=== PATIENT | female | born 1930 ===

== ENCOUNTER 2018-11-17 17:07 | Inpatient (IN) | payer MEDICARE, MEDICAID ==
[2018-11-17 17:08] VITALS: BMI 37.2
[2018-11-17 17:50] LABS: BASO # 0.1 K/uL (0.0-0.2); BASO % 0.9 % (0.0-2.0); EOS # 0.3 K/uL (0.0-0.7); EOS % 2.8 % (0.0-4.0); HEMOGLOBIN 7.5 g/dL (12.0-16.0); LYMPH # 1.8 K/uL (1.0-4.3); LYMPH % 19.9 % (20.0-40.0); MEAN CELL VOLUME 93.8 fl (81.0-99.0); MEAN CORPUSCULAR HEMOGLOBIN 30.8 pg (27.0-31.0); MEAN CORPUSCULAR HGB CONC 32.9 g/dL (33.0-37.0); MEAN PLATELET VOLUME 8.5 fl (7.2-11.7); MONO # 0.9 K/uL (0.0-0.8); MONO % 9.9 % (0.0-10.0); NEUT % 66.5 % (50.0-75.0); RBC 2.43 Mil/uL (3.80-5.20); RED CELL DISTRIBUTION WIDTH 15.5 % (11.5-14.5)
[2018-11-17 17:55] LABS: PROTHROMBIN TIME 11.9 Seconds (9.8-13.1)
[2018-11-17 17:57] LABS: PARTIAL THROMBOPLASTIN TIME 31.3 Seconds (25.6-37.1)
[2018-11-17 18:02] LABS: VENOUS BLOOD GAS BASE EXCESS -2.3 mmol/L (0.0-2.0); VENOUS BLOOD GAS PCO2 38 mmHg (40-60); VENOUS BLOOD GAS PO2 25 mm/Hg (30-55); VENOUS BLOOD PH 7.38 (7.32-7.43)
--- NOTE | 2018-11-17 18:02 | ED PDOC ---
HPI:Nausea, Vomiting, Diarrhea Time Seen by Provider: 11/17/18 17:17 Chief Complaint (Nursing): Abnormal Labs Chief Complaint (Provider): GI bleed History Per: Patient History/Exam Limitations: clinical condition Onset/Duration Of Symptoms: Unknown Associated Symptoms: Diarrhea Additional Complaint(s): 88 year old female with a history of dementia and hypertension was sent by assisted to the ED for blood stools and hemoglobin of 6.8. Patient is unable to provide any further history. She only reports that she feels like she has diarrhea with unknown duration. PMD: Jeaneth Past Medical History Reviewed: Historical Data, Nursing Documentation, Vital Signs Vital Signs: Last Vital Signs Temp 99.0 F 11/17/18 17:10 Pulse 82 11/17/18 17:10 Resp 18 11/17/18 17:10 BP 141/57 L 11/17/18 17:10 Pulse Ox 98 11/17/18 17:10 Primary Care Provider: Florencio Eric - Medical History PMH: Anemia, Arthritis, Asthma, Dementia, HTN Denies: Chronic Kidney Disease - Surgical History Surgical History: Cholecystectomy - Family History Family History: States: Unknown Family Hx - Social History Current smoker - smoking cessation education provided: No Ex-Smoker (has not smoked in the last 12 months): No - Home Medications Home Medications: Ambulatory Orders Medication Instructions Recorded Acetaminophen [Tylenol Extra 1,000 mg PO Q8 PRN 11/17/18 Strength] Bimatoprost [Lumigan] 1 drop BOTHEYES HS 11/17/18 Donepezil HCl [Aricept] 10 mg PO HS 11/17/18 Lactulose [Constulose] 15 ml PO Q8 PRN 11/17/18 Levothyroxine Sodium [Levoxyl] 50 mcg PO DAILY 11/17/18 Lidocaine 2% Gel [Xylocaine 2% 1 dose TD DAILY 11/17/18 (Uro-Jet)] Megestrol Acetate 10 ml PO DAILY 11/17/18 Memantine HCl [Namenda Xr] 28 mg PO HS 11/17/18 Metoprolol Tartrate [Lopressor] 25 mg PO BID 11/17/18 Nitroglycerin [Nitroglycerin Patch] 1 patch TD DAILY 11/17/18 Oxycodone HCl/Acetaminophen 1 tab PO Q12 PRN 11/17/18 [Oxycodone-Acetaminophen 5-325] Propylene Glycol [Systane Complete] 1 drop BOTHEYES BID 11/17/18 - Allergies Allergies/Adverse Reactions: Allergies Allergy/AdvReac Type Severity Reaction Status Date / Time No Known Allergies Allergy Verified 12/03/14 08:11 Review of Systems Review Of Systems: ROS cannot be obtained secondary to pt's inabilty to answer questions. Physical Exam - Reviewed Nursing Documentation Reviewed: Yes Vital Signs Reviewed: Yes - Physical Exam Appears: Positive for: No Acute Distress (pleasantly confused) Head Exam: Positive for: ATRAUMATIC, NORMOCEPHALIC Skin: Positive for: Pallor Eye Exam: Positive for: EOMI, PERRL ENT: Positive for: Other (tacky mucous membranes) Neck: Positive for: Painless ROM. Negative for: Trachea Midline Cardiovascular/Chest: Positive for: Regular Rate, Rhythm. Negative for: Murmur Respiratory: Positive for: Normal Breath Sounds. Negative for: Respiratory Distress Gastrointestinal/Abdominal: Positive for: Soft. Negative for: Tenderness Back: Positive for: Normal Inspection. Negative for: Muscle Spasm Rectal: Positive for: Other (gross blood at the rectum ) Extremity: Positive for: Normal ROM. Negative for: Deformity Lymphatic: Negative for: Adenopathy Neurological/Psych: Positive for: Awake, Alert. Negative for: Oriented, Motor/Sensory Deficits - Laboratory Results Result Diagrams: 11/17/18 17:46 11/17/18 17:46 Lab Results: PT 11.9 Seconds (9.8-13.1) 11/17/18 17:46 INR 1.0 11/17/18 17:46 APTT 31.3 Seconds (25.6-37.1) 11/17/18 17:46 - ECG ECG: Positive for: Interpreted By Me ECG Rhythm: Positive for: Normal QRS, Sinus Rhythm, Nonspecific Changes O2 Sat by Pulse Oximetry: 98 (RA) Pulse Ox Interpretation: Normal - Critical Care Total Time (In Min): 30 Documented Critical Care: Time excludes all time spent performint seperately billable procedures Medical Decision Making Medical Decision Making: Time: 1726 Impression: Anemia and GI bleed Patient will need hospitalization, pending ED workup Plan: --Crossmatch --Type and screen --VBG --EKG --BNP --CMP --magnesium --phosphorus --troponin --CBC --PTT --PT/INR --CXR --Protonix 80 mg IVP Hgb 7.5. Transfusion to be given. reviewed risks/benefits and pt signed consent. GAL Eric who requests Dr Mckenna for consult GAL Villeda for ICU placement for GI bleed. GAL Mckenna. At this time patient unable to undergo CT imaging with contrast due to renal status. Scribe Attestation: Documented by Asuncion Gibson, acting as a scribe for Estefany Gifford MD. Provider Scribe Attestation: All medical record entries made by the Scribe were at my direction and personally dictated by me. I have reviewed the chart and agree that the record accurately reflects my personal performance of the history, physical exam, medical decision making, and the department course for this patient. I have also personally directed, reviewed, and agree with the discharge instructions and disposition. Disposition - Clinical Impression Clinical Impression: Anemia, GI bleed - Disposition Disposition Time: 18:35 Condition: CRITICAL - Pt Status Changed To: Hospital Disposition Of: Inpatient - Admit Certification Admit to Inpatient:: After my assessment, the patient will require hospitalization for at least two midnights. This is because of the severity of symptoms shown, intensity of services needed, and/or the medical risk in this patient being treated as an outpatient. - POA Present On Arrival: None
[2018-11-17 18:04] LABS: ALBUMIN 3.1 g/dL (3.5-5.0); ALT/SGPT 24 U/L (9-52); AST/SGOT 18 U/L (14-36); BLOOD UREA NITROGEN 45 mg/dl (7-17); CALCIUM 8.3 mg/dL (8.4-10.2); GFR NON-AFRICAN AMERICAN 25
[2018-11-17 18:15] LABS: B-TYPE NATRIURETIC PEPTIDE 5620 pg/ml (0-900)
--- NOTE | 2018-11-17 18:19 | RAD ---
Date of service: 11/17/2018 HISTORY: Anemia, GI bleed. COMPARISON: 04/07/2013 FINDINGS: LUNGS: No active pulmonary disease. PLEURA: No significant pleural effusion identified, no pneumothorax apparent. CARDIOVASCULAR: Atherosclerotic calcifications identified primarily aortic arch. Small right pleural effusion. OSSEOUS STRUCTURES: No significant abnormalities. VISUALIZED UPPER ABDOMEN: Normal. OTHER FINDINGS: None. IMPRESSION: No active pulmonary disease.
[2018-11-17] MEDS ORDERED: Metoprolol 1 mg/ml Inj IVP STA (20:55)
[2018-11-17] MEDS ORDERED: Metoprolol 1 mg/ml Inj ONE (21:07)
--- NOTE | 2018-11-17 21:41 | CP.CCUPN ---
CCU Subjective - Physician Review Subjective (Free Text): Available ER notes, labs, and CXR reviewed: 88F transferred from [place] for [facility], no assoc hypotension, N/V, tachycardia, or lethargy. In [place], exhibited rectal bleeding with lower abdominal discomfort, Hgb testing at the [place] was 6.8, initial labs in the ER showed Hgb = 7.5. Appears confused, oriented to person and place only, does not appear distressed, no family available for further questioning. VS reviewed; Afebrile, HR 82, BP 141/87, RR 18, 98% on RA PMH: dementia, HTN, Anemia and asthma. ROS: No other pertinent negs or positive on 10+ system review obtainable. Allergies: NKDA [place] Meds: Lumigan / Systane, Aricept, Lactulose, Levothyroxine, Megace, Namenda, Lopressor, NTG patch, Oxycodone. Other PMSFH: All other Nursing and physician documentation reviewed to date; no new pertinent info noted relevant to current medical problems. EXAM- HEENT: no icterus, pupils equal, 3 mm and reactive, no gaze preference, no nystagmus NECK: no visible JVD, supple, carotids equal upstroke bilat/no bruits CHEST: decreased BS L base, no wheezes audible HEART: regular, distant, S1S2, no murmur audible, no rubs. ABD: soft, minimal distention, notenderness; BS hypoactive EXT: no calf tenderness, no palpable cords, distal pulses intact and symmetrical, SCDs on bilat, no cyanosis, no clubbing. NEURO: No focal motor deficits SKIN: no rashes LABS: WBC= 9.0 HGB= 7.5 PLTs = 232K Coags: INR =1.0, PTT normal. 7.38/38/25 with VBG 55.4% sat'n Lactate= 2.0 Na= 137 K= 4.6 Cl= 107 HCO3= 20 BUN/Cr= 45/1.9 BS= 137 Trop negative x1. CXR: (my interp) small R effusion, rotated film, no obvious consolidation. EKG: Sinus 71/min, normal axis, mild NS ST-T changes V5-V6. IMPRESSION / MAJOR PROBLEMS NOW: 1. Acute on Chronic Disease Anemia 2' LGI Bleed 2. r/o Diverticular disease, AVM, occult Bowel CA 3. Azotemia / Dehydration PLAN: 1. PRBCs ordered in ER, and started on PPi bolus and drip, GI consultation. 2. IVF hydration 3. Continue beta blockers, Nitroglycerin, obtain serial trops, repeat EKG in AM. 4. Consider CT Abdomen pelvis Angio study; and Surgery eval if rectal bleeding does not subside. 5. See orders.
[2018-11-17] MEDS ORDERED: Metoprolol 1 mg/ml Inj IVP PRN (22:08)
[2018-11-17] MEDS ORDERED: Nitroglycerin 2% Ointment Foilpak UD TOP ONE (23:41)
[2018-11-17] MEDS: Nitroglycerin 2% Ointment Foilpak UD TOP SCH (23:50)
[2018-11-18] MEDS ORDERED: Metoprolol 1 mg/ml Inj ONE
[2018-11-18 06:50] LABS: BASO % 0.5 % (0.0-2.0); EOS # 0.2 K/uL (0.0-0.7); EOS % 2.4 % (0.0-4.0); HEMOGLOBIN 9.5 g/dL (12.0-16.0); LYMPH # 1.9 K/uL (1.0-4.3); LYMPH % 20.8 % (20.0-40.0); MEAN CELL VOLUME 90.7 fl (81.0-99.0); MEAN CORPUSCULAR HEMOGLOBIN 30.6 pg (27.0-31.0); MEAN CORPUSCULAR HGB CONC 33.8 g/dL (33.0-37.0); MEAN PLATELET VOLUME 8.7 fl (7.2-11.7); MONO # 1.1 K/uL (0.0-0.8); NEUT # 5.8 K/uL (1.8-7.0); NEUT % 64.3 % (50.0-75.0); NRBC % 0.1 % (0.0-0.0); RBC 3.11 Mil/uL (3.80-5.20); RED CELL DISTRIBUTION WIDTH 14.8 % (11.5-14.5)
[2018-11-18 07:25] LABS: ALBUMIN 2.8 g/dL (3.5-5.0); ALT/SGPT 25 U/L (9-52); AST/SGOT 27 U/L (14-36); BLOOD UREA NITROGEN 40 mg/dl (7-17); CALCIUM 8.2 mg/dL (8.4-10.2); GFR NON-AFRICAN AMERICAN 28
[2018-11-18] MEDS: Nitroglycerin 2% Ointment Foilpak UD TOP SCH ×4 (08:22→21:25)
--- NOTE | 2018-11-18 08:50 | CP.CCUPN ---
CCU Subjective - Physician Review Events Since Last Encounter (Free Text): Patient awake, no distress, no fever, no vomiting, no pressors, events reviewed CCU Objective - Vital Signs / Intake & Output Vital Signs (Last 4 hours): Vital Signs Pulse Resp BP Pulse Ox 11/18/18 08:22 175/71 H 11/18/18 06:00 59 L 14 172/87 H 96 Intake and Output (Last 8hrs): Intake & Output 11/17/18 11/18/18 11/18/18 22:59 06:59 14:59 Intake Total 0 926 Output Total 250 Balance 0 676 Weight 120 lb 3.2 oz 122 lb Intake: IV 35 Blood Product 0 891 Apheresis Rbc Cp2d As3 Lr 283 1st Unit [id number] Red Blood Cells Cpd As1 0 325 Lr Unit [id number] Output: Urine 250 Urine, Voided 250 Other: # Bowel Movements 1 - Physical Exam Head: Positive for: Atraumatic, Normocephalic Pupils: Positive for: PERRL Conjunctiva: Positive for: Normal Mouth: Positive for: Dry Pharnyx: Positive for: Normal Nose (External): Positive for: Atraumatic Neck: Positive for: Normal Range of Motion Respiratory/Chest: Positive for: Clear to Auscultation Cardiovascular: Positive for: Regular Rate and Rhythm Abdomen: Positive for: Normal Bowel Sounds Upper Extremity: Positive for: Normal Inspection Lower Extremity: Positive for: Normal Inspection Psychiatric: Positive for: Alert - Medications Active Medications: Active Medications Generic Name Dose Route Start Last Admin Trade Name Freq PRN Reason Stop Dose Admin Metoprolol Tartrate 2.5 mg 11/17/18 22:08 11/18/18 00:00 Lopressor IVP 2.5 mg Q4 PRN Administration Systolic Blood Pressure Nitroglycerin 2 ea 11/17/18 22:30 11/18/18 08:22 Nitro-Bid 2% Oint TOP 2 ea QID GRAHAM Administration Pantoprazole Sodium 40 mg 11/18/18 09:00 11/18/18 08:23 Protonix Inj IVP 40 mg Q12 GRAHAM Administration - Patient Studies Lab Studies: Lab Studies 11/18/18 11/18/18 11/18/18 Range/Units 04:35 04:35 04:35 WBC (4.8-10.8) K/uL RBC (3.80-5.20) Mil/uL Hgb (12.0-16.0) g/dL Hct (34.0-47.0) % MCV (81.0-99.0) fl MCH (27.0-31.0) pg MCHC (33.0-37.0) g/dL RDW (11.5-14.5) % Plt Count (130-400) K/uL MPV (7.2-11.7) fl Neut % (Auto) (50.0-75.0) % Lymph % (Auto) (20.0-40.0) % [place] % (Auto) (0.0-10.0) % Eos % (Auto) (0.0-4.0) % Baso % (Auto) (0.0-2.0) % Neut # (Auto) (1.8-7.0) K/uL Lymph # (Auto) (1.0-4.3) K/uL [place] # (Auto) (0.0-0.8) K/uL Eos # (Auto) (0.0-0.7) K/uL Baso # (Auto) (0.0-0.2) K/uL PT (9.8-13.1) Seconds INR APTT (25.6-37.1) Seconds pO2 (30-55) mm/Hg VBG pH (7.32-7.43) VBG pCO2 (40-60) mmHg VBG HCO3 mmol/L VBG Total CO2 (22-28) mmol/L VBG O2 Sat (Calc) (40-65) % VBG Base Excess (0.0-2.0) mmol/L VBG Potassium (3.6-5.2) mmol/L Glucose (65-105) mg/dL Lactate (0.7-2.1) mmol/L FiO2 % Crit Value Called To Crit Value Called By Crit Value Read Back Blood Gas Notified Time Sodium 138 (132-148) mmol/l Potassium 4.7 (3.6-5.0) MMOL/L Chloride 109 H (98-107) mmol/L Carbon Dioxide 22 (22-30) mmol/L Anion Gap 12 (10-20) BUN 40 H (7-17) mg/dl Creatinine 1.7 H (0.7-1.2) mg/dl Est GFR ( Amer) 34 Est GFR (Non-Af Amer) 28 Random Glucose 73 (65-105) mg/dL Lactic Acid 0.8 (0.7-2.1) mmol/L Calcium 8.2 L (8.4-10.2) mg/dL Phosphorus 4.2 (2.5-4.5) mg/dl Magnesium 2.3 (1.6-2.3) MG/DL Total Bilirubin 1.0 (0.2-1.3) mg/dl AST 27 (14-36) U/L ALT 25 (9-52) U/L Alkaline Phosphatase 53 (38-126) U/L Troponin I < 0.0120 (0.00-0.120) ng/mL NT-Pro-B Natriuret Pep (0-900) pg/ml Total Protein 5.7 L (6.3-8.2) G/DL Albumin 2.8 L (3.5-5.0) g/dL Globulin 2.9 (2.2-3.9) gm/dL Albumin/Globulin Ratio 1.0 (1.0-2.1) Free T4 1.58 (0.78-2.19) ng/dL TSH 3rd Generation 2.68 (0.46-4.68) mIU/ML Venous Blood Potassium (3.6-5.2) mmol/L Blood Type Antibody Screen Crossmatch BBK History Checked 11/18/18 11/17/18 11/17/18 Range/Units 04:35 23:38 17:51 WBC 9.0 (4.8-10.8) K/uL RBC 3.11 L (3.80-5.20) Mil/uL Hgb 9.5 L D (12.0-16.0) g/dL Hct 28.2 L (34.0-47.0) % MCV 90.7 D (81.0-99.0) fl MCH 30.6 (27.0-31.0) pg MCHC 33.8 (33.0-37.0) g/dL RDW 14.8 H (11.5-14.5) % Plt Count 204 (130-400) K/uL MPV 8.7 (7.2-11.7) fl Neut % (Auto) 64.3 (50.0-75.0) % Lymph % (Auto) 20.8 (20.0-40.0) % [place] % (Auto) 12.0 H (0.0-10.0) % Eos % (Auto) 2.4 (0.0-4.0) % Baso % (Auto) 0.5 (0.0-2.0) % Neut # (Auto) 5.8 (1.8-7.0) K/uL Lymph # (Auto) 1.9 (1.0-4.3) K/uL [place] # (Auto) 1.1 H (0.0-0.8) K/uL Eos # (Auto) 0.2 (0.0-0.7) K/uL Baso # (Auto) 0.0 (0.0-0.2) K/uL PT (9.8-13.1) Seconds INR APTT (25.6-37.1) Seconds pO2 25 L (30-55) mm/Hg VBG pH 7.38 (7.32-7.43) VBG pCO2 38 L (40-60) mmHg VBG HCO3 21.7 mmol/L VBG Total CO2 23.7 (22-28) mmol/L VBG O2 Sat (Calc) 55.4 (40-65) % VBG Base Excess -2.3 L (0.0-2.0) mmol/L VBG Potassium 4.8 (3.6-5.2) mmol/L Glucose 139 H (65-105) mg/dL Lactate 2.0 (0.7-2.1) mmol/L FiO2 21.0 % Crit Value Called To adam Gifford md Crit Value Called By Ricardo ruvalcaba Crit Value Read Back Y Blood Gas Notified Time 180 Sodium 138.0 (132-148) mmol/l Potassium (3.6-5.0) MMOL/L Chloride 109.0 H (98-107) mmol/L Carbon Dioxide (22-30) mmol/L Anion Gap (10-20) BUN (7-17) mg/dl Creatinine (0.7-1.2) mg/dl Est GFR ( Amer) Est GFR (Non-Af Amer) Random Glucose (65-105) mg/dL Lactic Acid (0.7-2.1) mmol/L Calcium (8.4-10.2) mg/dL Phosphorus (2.5-4.5) mg/dl Magnesium (1.6-2.3) MG/DL Total Bilirubin (0.2-1.3) mg/dl AST (14-36) U/L ALT (9-52) U/L Alkaline Phosphatase (38-126) U/L Troponin I < 0.0120 (0.00-0.120) ng/mL NT-Pro-B Natriuret Pep (0-900) pg/ml Total Protein (6.3-8.2) G/DL Albumin (3.5-5.0) g/dL Globulin (2.2-3.9) gm/dL Albumin/Globulin Ratio (1.0-2.1) Free T4 (0.78-2.19) ng/dL TSH 3rd Generation (0.46-4.68) mIU/ML Venous Blood Potassium 4.8 (3.6-5.2) mmol/L Blood Type Antibody Screen Crossmatch BBK History Checked 11/17/18 11/17/18 11/17/18 Range/Units 17:46 17:46 17:46 WBC 9.0 (4.8-10.8) K/uL RBC 2.43 L (3.80-5.20) Mil/uL Hgb 7.5 L (12.0-16.0) g/dL Hct 22.8 L (34.0-47.0) % MCV 93.8 (81.0-99.0) fl MCH 30.8 (27.0-31.0) pg MCHC 32.9 L (33.0-37.0) g/dL RDW 15.5 H (11.5-14.5) % Plt Count 232 (130-400) K/uL MPV 8.5 (7.2-11.7) fl Neut % (Auto) 66.5 (50.0-75.0) % Lymph % (Auto) 19.9 L (20.0-40.0) % [place] % (Auto) 9.9 (0.0-10.0) % Eos % (Auto) 2.8 (0.0-4.0) % Baso % (Auto) 0.9 (0.0-2.0) % Neut # (Auto) 6.0 (1.8-7.0) K/uL Lymph # (Auto) 1.8 (1.0-4.3) K/uL [place] # (Auto) 0.9 H (0.0-0.8) K/uL Eos # (Auto) 0.3 (0.0-0.7) K/uL Baso # (Auto) 0.1 (0.0-0.2) K/uL PT 11.9 (9.8-13.1) Seconds INR 1.0 APTT 31.3 (25.6-37.1) Seconds pO2 (30-55) mm/Hg VBG pH (7.32-7.43) VBG pCO2 (40-60) mmHg VBG HCO3 mmol/L VBG Total CO2 (22-28) mmol/L VBG O2 Sat (Calc) (40-65) % VBG Base Excess (0.0-2.0) mmol/L VBG Potassium (3.6-5.2) mmol/L Glucose (65-105) mg/dL Lactate (0.7-2.1) mmol/L FiO2 % Crit Value Called To Crit Value Called By Crit Value Read Back Blood Gas Notified Time Sodium (132-148) mmol/l Potassium (3.6-5.0) MMOL/L Chloride (98-107) mmol/L Carbon Dioxide (22-30) mmol/L Anion Gap (10-20) BUN (7-17) mg/dl Creatinine (0.7-1.2) mg/dl Est GFR ( Amer) Est GFR (Non-Af Amer) Random Glucose (65-105) mg/dL Lactic Acid (0.7-2.1) mmol/L Calcium (8.4-10.2) mg/dL Phosphorus (2.5-4.5) mg/dl Magnesium (1.6-2.3) MG/DL Total Bilirubin (0.2-1.3) mg/dl AST (14-36) U/L ALT (9-52) U/L Alkaline Phosphatase (38-126) U/L Troponin I (0.00-0.120) ng/mL NT-Pro-B Natriuret Pep (0-900) pg/ml Total Protein (6.3-8.2) G/DL Albumin (3.5-5.0) g/dL Globulin (2.2-3.9) gm/dL Albumin/Globulin Ratio (1.0-2.1) Free T4 (0.78-2.19) ng/dL TSH 3rd Generation (0.46-4.68) mIU/ML Venous Blood Potassium (3.6-5.2) mmol/L Blood Type O POSITIVE Antibody Screen Negative Crossmatch See Detail BBK History Checked Patient has bt 11/17/18 Range/Units 17:46 WBC (4.8-10.8) K/uL RBC (3.80-5.20) Mil/uL Hgb (12.0-16.0) g/dL Hct (34.0-47.0) % MCV (81.0-99.0) fl MCH (27.0-31.0) pg MCHC (33.0-37.0) g/dL RDW (11.5-14.5) % Plt Count (130-400) K/uL MPV (7.2-11.7) fl Neut % (Auto) (50.0-75.0) % Lymph % (Auto) (20.0-40.0) % [place] % (Auto) (0.0-10.0) % Eos % (Auto) (0.0-4.0) % Baso % (Auto) (0.0-2.0) % Neut # (Auto) (1.8-7.0) K/uL Lymph # (Auto) (1.0-4.3) K/uL [place] # (Auto) (0.0-0.8) K/uL Eos # (Auto) (0.0-0.7) K/uL Baso # (Auto) (0.0-0.2) K/uL PT (9.8-13.1) Seconds INR APTT (25.6-37.1) Seconds pO2 (30-55) mm/Hg VBG pH (7.32-7.43) VBG pCO2 (40-60) mmHg VBG HCO3 mmol/L VBG Total CO2 (22-28) mmol/L VBG O2 Sat (Calc) (40-65) % VBG Base Excess (0.0-2.0) mmol/L VBG Potassium (3.6-5.2) mmol/L Glucose (65-105) mg/dL Lactate (0.7-2.1) mmol/L FiO2 % Crit Value Called To Crit Value Called By Crit Value Read Back Blood Gas Notified Time Sodium 137 (132-148) mmol/l Potassium 4.6 (3.6-5.0) MMOL/L Chloride 107 (98-107) mmol/L Carbon Dioxide 20 L (22-30) mmol/L Anion Gap 15 (10-20) BUN 45 H (7-17) mg/dl Creatinine 1.9 H (0.7-1.2) mg/dl Est GFR ( Amer) 30 Est GFR (Non-Af Amer) 25 Random Glucose 137 H (65-105) mg/dL Lactic Acid (0.7-2.1) mmol/L Calcium 8.3 L (8.4-10.2) mg/dL Phosphorus 4.2 (2.5-4.5) mg/dl Magnesium 2.4 H (1.6-2.3) MG/DL Total Bilirubin 0.4 (0.2-1.3) mg/dl AST 18 (14-36) U/L ALT 24 (9-52) U/L Alkaline Phosphatase 61 (38-126) U/L Troponin I < 0.0120 (0.00-0.120) ng/mL NT-Pro-B Natriuret Pep 5620 H (0-900) pg/ml Total Protein 6.0 L (6.3-8.2) G/DL Albumin 3.1 L (3.5-5.0) g/dL Globulin 3.0 (2.2-3.9) gm/dL Albumin/Globulin Ratio 1.0 (1.0-2.1) Free T4 (0.78-2.19) ng/dL TSH 3rd Generation (0.46-4.68) mIU/ML Venous Blood Potassium (3.6-5.2) mmol/L Blood Type Antibody Screen Crossmatch BBK History Checked Laboratory Results - last 24 hr 11/17/18 11/17/18 11/17/18 17:46 17:46 17:46 WBC 9.0 RBC 2.43 L Hgb 7.5 L Hct 22.8 L MCV 93.8 MCH 30.8 MCHC 32.9 L RDW 15.5 H Plt Count 232 MPV 8.5 Neut % (Auto) 66.5 Lymph % (Auto) 19.9 L [place] % (Auto) 9.9 Eos % (Auto) 2.8 Baso % (Auto) 0.9 Neut # (Auto) 6.0 Lymph # (Auto) 1.8 [place] # (Auto) 0.9 H Eos # (Auto) 0.3 Baso # (Auto) 0.1 PT 11.9 INR 1.0 APTT 31.3 pO2 VBG pH VBG pCO2 VBG HCO3 VBG Total CO2 VBG O2 Sat (Calc) VBG Base Excess VBG Potassium Glucose Lactate FiO2 Crit Value Called To Crit Value Called By Crit Value Read Back Blood Gas Notified Time Sodium 137 Potassium 4.6 Chloride 107 Carbon Dioxide 20 L Anion Gap 15 BUN 45 H Creatinine 1.9 H Est GFR ( Amer) 30 Est GFR (Non-Af Amer) 25 Random Glucose 137 H Lactic Acid Calcium 8.3 L Phosphorus 4.2 Magnesium 2.4 H Total Bilirubin 0.4 AST 18 ALT 24 Alkaline Phosphatase 61 Troponin I < 0.0120 NT-Pro-B Natriuret Pep 5620 H Total Protein 6.0 L Albumin 3.1 L Globulin 3.0 Albumin/Globulin Ratio 1.0 Free T4 TSH 3rd Generation Venous Blood Potassium Blood Type Antibody Screen Crossmatch BBK History Checked 11/17/18 11/17/18 11/17/18 17:46 17:51 23:38 WBC RBC Hgb Hct MCV MCH MCHC RDW Plt Count MPV Neut % (Auto) Lymph % (Auto) [place] % (Auto) Eos % (Auto) Baso % (Auto) Neut # (Auto) Lymph # (Auto) [place] # (Auto) Eos # (Auto) Baso # (Auto) PT INR APTT pO2 25 L VBG pH 7.38 VBG pCO2 38 L VBG HCO3 21.7 VBG Total CO2 23.7 VBG O2 Sat (Calc) 55.4 VBG Base Excess -2.3 L VBG Potassium 4.8 Glucose 139 H Lactate 2.0 FiO2 21.0 Crit Value Called To adam Gifford md Crit Value Called By Ricardo ruvalcaba Crit Value Read Back Y Blood Gas Notified Time 1802 Sodium 138.0 Potassium Chloride 109.0 H Carbon Dioxide Anion Gap BUN Creatinine Est GFR ( Amer) Est GFR (Non-Af Amer) Random Glucose Lactic Acid Calcium Phosphorus Magnesium Total Bilirubin AST ALT Alkaline Phosphatase Troponin I < 0.0120 NT-Pro-B Natriuret Pep Total Protein Albumin Globulin Albumin/Globulin Ratio Free T4 TSH 3rd Generation Venous Blood Potassium 4.8 Blood Type O POSITIVE Antibody Screen Negative Crossmatch See Detail BBK History Checked Patient has bt 11/18/18 11/18/18 11/18/18 04:35 04:35 04:35 WBC 9.0 RBC 3.11 L Hgb 9.5 L D Hct 28.2 L MCV 90.7 D MCH 30.6 MCHC 33.8 RDW 14.8 H Plt Count 204 MPV 8.7 Neut % (Auto) 64.3 Lymph % (Auto) 20.8 [place] % (Auto) 12.0 H Eos % (Auto) 2.4 Baso % (Auto) 0.5 Neut # (Auto) 5.8 Lymph # (Auto) 1.9 [place] # (Auto) 1.1 H Eos # (Auto) 0.2 Baso # (Auto) 0.0 PT INR APTT pO2 VBG pH VBG pCO2 VBG HCO3 VBG Total CO2 VBG O2 Sat (Calc) VBG Base Excess VBG Potassium Glucose Lactate FiO2 Crit Value Called To Crit Value Called By Crit Value Read Back Blood Gas Notified Time Sodium 138 Potassium 4.7 Chloride 109 H Carbon Dioxide 22 Anion Gap 12 BUN 40 H Creatinine 1.7 H Est GFR ( Amer) 34 Est GFR (Non-Af Amer) 28 Random Glucose 73 Lactic Acid Calcium 8.2 L Phosphorus 4.2 Magnesium 2.3 Total Bilirubin 1.0 AST 27 ALT 25 Alkaline Phosphatase 53 Troponin I < 0.0120 NT-Pro-B Natriuret Pep Total Protein 5.7 L Albumin 2.8 L Globulin 2.9 Albumin/Globulin Ratio 1.0 Free T4 1.58 TSH 3rd Generation 2.68 Venous Blood Potassium Blood Type Antibody Screen Crossmatch BBK History Checked 11/18/18 04:35 WBC RBC Hgb Hct MCV MCH MCHC RDW Plt Count MPV Neut % (Auto) Lymph % (Auto) [place] % (Auto) Eos % (Auto) Baso % (Auto) Neut # (Auto) Lymph # (Auto) [place] # (Auto) Eos # (Auto) Baso # (Auto) PT INR APTT pO2 VBG pH VBG pCO2 VBG HCO3 VBG Total CO2 VBG O2 Sat (Calc) VBG Base Excess VBG Potassium Glucose Lactate FiO2 Crit Value Called To Crit Value Called By Crit Value Read Back Blood Gas Notified Time Sodium Potassium Chloride Carbon Dioxide Anion Gap BUN Creatinine Est GFR ( Amer) Est GFR (Non-Af Amer) Random Glucose Lactic Acid 0.8 Calcium Phosphorus Magnesium Total Bilirubin AST ALT Alkaline Phosphatase Troponin I NT-Pro-B Natriuret Pep Total Protein Albumin Globulin Albumin/Globulin Ratio Free T4 TSH 3rd Generation Venous Blood Potassium Blood Type Antibody Screen Crossmatch BBK History Checked Radiology Impressions: Radiology Impressions Chest X-Ray 11/17/18 17:26 IMPRESSION: No active pulmonary disease. EKG/Cardiology Studies: Cardiology / EKG Studies 11/18/18 09:00 EKG [ELECTROCARDIOGRAM] DAILY Comment: Mode Of Transportation: Reason For Exam: r/o AMI Assessment/Plan - Assessment and Plan (Free Text) Assessment: A/P GI bleeding, anemia, dementia, HTN, asthma - Follow up CBC - Transfusion as needed - GI follow up - Continue meds
--- NOTE | 2018-11-18 11:51 | CARD ---
APPROVED REPORT Date of service: 11/17/2018 EKG Measurement Heart [id number] <Conclusion> Normal sinus rhythm with sinus arrhythmia Nonspecific ST abnormality Abnormal ECG
[2018-11-18] MEDS: metroNIDAZOLE 500mg/100ml NS 250 MG in Premixed IV 1 EA IVPB SCH (16:21)
[2018-11-18] MEDS: Dextrose 5%/0.45% NS 1,000 ML IV SCH (16:22)
[2018-11-18] MEDS: Ciprofloxacin 400mg/200ml D5W 400 MG/200 ML BAG IVPB SCH (17:14)
--- NOTE | 2018-11-18 17:17 | CP.PCM.HP ---
History of Present Illness - History of Present Illness History of Present Illness: CC: Abnormal Lab. 88 y/o F, resident at [facility], with PMHx Dementia, HTN, O/A, Asthma, Hypothyroidism, Anemia, falls, chronic back pain. Pt was brought to [facility] on 11/17/18 via EMS, after found with critical level of Hgb on 6.8 while at [place] on [facility], associated to gross rectal bleeding/ diarrhea with no improvement. Worsening symptoms: Abdomen discomfort LLQ, lack of appetite (as per family), Hx Dementia, poor historian Aggravated factor: Walking/exercise. No: Fever, chills, n/v, painful urination, CP, palpitations, dizziness, headache, SOB, cough, sick contact. CXR: No active disease. EKG: Normal sinus rhythm with sinus arrhythmia. Hgb in the ER: 7.5 Present on Admission - Present on Admission Any Indicators Present on Admission: No Review of Systems - Review of Systems Systems not reviewed;Unavailable: Acuity of Condition, Dementia - Constitutional Constitutional: Weight Loss (few, as per family), Weakness Past Patient History - Past Medical History & Family History Past Medical History?: Yes Pertinent Family History: Unknown - Past Social History Smoking Status: Never Smoked Alcohol: None Drugs: Denies - CARDIAC Hx Cardiac Disorders: Yes Hx Hypertension: Yes - PULMONARY Hx Respiratory Disorders: Yes Hx Asthma: Yes Hx Pneumonia: Yes - NEUROLOGICAL Hx Neurological Disorder: Yes Hx Dementia: Yes - HEENT Hx HEENT Problems: Yes Hx Cataracts: Yes - RENAL Hx Chronic Kidney Disease: No - ENDOCRINE/METABOLIC Hx Endocrine Disorders: Yes Hx Hypothyroidism: Yes - HEMATOLOGICAL/ONCOLOGICAL Hx Blood Disorders: Yes Hx Anemia: Yes - INTEGUMENTARY Hx Dermatological Problems: No - MUSCULOSKELETAL/RHEUMATOLOGICAL Hx Musculoskeletal Disorders: Yes Hx Arthritis: Yes Hx Back Pain: Yes Hx Falls: Yes - GASTROINTESTINAL Hx Gastrointestinal Disorders: No - GENITOURINARY/GYNECOLOGICAL Hx Genitourinary Disorders: Yes Other/Comment: FREQUENCY OF URINATION - PSYCHIATRIC Hx Psychophysiologic Disorder: Yes Hx Anxiety: Yes Hx Substance Use: No - SURGICAL HISTORY Hx Surgeries: Yes Hx Cholecystectomy: Yes Hx Open Reduction Internal Fixation: Yes (hip surgery) - ANESTHESIA Hx Anesthesia: Yes Hx Anesthesia Reactions: No Hx Malignant Hyperthermia: No Meds Allergies/Adverse Reactions: Allergies Allergy/AdvReac Type Severity Reaction Status Date / Time No Known Allergies Allergy Verified 12/03/14 08:11 Physical Exam - Constitutional Appears: No Acute Distress, Confused - Head Exam Head Exam: NORMAL INSPECTION - Eye Exam Eye Exam: PERRL - ENT Exam ENT Exam: Normal Exam - Neck Exam Neck exam: Positive for: Normal Inspection - Respiratory Exam Respiratory Exam: Decreased Breath Sounds - Cardiovascular Exam Cardiovascular Exam: REGULAR RHYTHM - GI/Abdominal Exam GI & Abdominal Exam: Normal Bowel Sounds, Soft, Tenderness (LLQ) - Extremities Exam Additional comments: 3+ edema BLE - Back Exam Additional comments: Sacral redness - Neurological Exam Additional comments: Awake, Ox1, forgetful, - Skin Skin Exam: Warm Results - Vital Signs Recent Vital Signs: Last Vital Signs Temp 99 F 11/18/18 16:00 Pulse 82 11/18/18 16:22 Resp 15 11/18/18 16:00 BP 159/58 H 11/18/18 16:00 Pulse Ox 95 11/18/18 12:00 reviewed Niko - Labs Result Diagrams: 11/19/18 04:30 11/19/18 04:30 Labs: Laboratory Results - last 24 hr 11/17/18 11/17/18 11/17/18 17:46 17:46 17:46 WBC 9.0 RBC 2.43 L Hgb 7.5 L Hct 22.8 L MCV 93.8 MCH 30.8 MCHC 32.9 L RDW 15.5 H Plt Count 232 MPV 8.5 Neut % (Auto) 66.5 Lymph % (Auto) 19.9 L [place] % (Auto) 9.9 Eos % (Auto) 2.8 Baso % (Auto) 0.9 Neut # (Auto) 6.0 Lymph # (Auto) 1.8 [place] # (Auto) 0.9 H Eos # (Auto) 0.3 Baso # (Auto) 0.1 PT 11.9 INR 1.0 APTT 31.3 pO2 VBG pH VBG pCO2 VBG HCO3 VBG Total CO2 VBG O2 Sat (Calc) VBG Base Excess VBG Potassium Glucose Lactate FiO2 Crit Value Called To Crit Value Called By Crit Value Read Back Blood Gas Notified Time Sodium 137 Potassium 4.6 Chloride 107 Carbon Dioxide 20 L Anion Gap 15 BUN 45 H Creatinine 1.9 H Est GFR ( Amer) 30 Est GFR (Non-Af Amer) 25 Random Glucose 137 H Lactic Acid Calcium 8.3 L Phosphorus 4.2 Magnesium 2.4 H Total Bilirubin 0.4 AST 18 ALT 24 Alkaline Phosphatase 61 Troponin I < 0.0120 NT-Pro-B Natriuret Pep 5620 H Total Protein 6.0 L Albumin 3.1 L Globulin 3.0 Albumin/Globulin Ratio 1.0 Free T4 TSH 3rd Generation Venous Blood Potassium Blood Type Antibody Screen Crossmatch BBK History Checked 11/17/18 11/17/18 11/17/18 17:46 17:51 23:38 WBC RBC Hgb Hct MCV MCH MCHC RDW Plt Count MPV Neut % (Auto) Lymph % (Auto) [place] % (Auto) Eos % (Auto) Baso % (Auto) Neut # (Auto) Lymph # (Auto) [place] # (Auto) Eos # (Auto) Baso # (Auto) PT INR APTT pO2 25 L VBG pH 7.38 VBG pCO2 38 L VBG HCO3 21.7 VBG Total CO2 23.7 VBG O2 Sat (Calc) 55.4 VBG Base Excess -2.3 L VBG Potassium 4.8 Glucose 139 H Lactate 2.0 FiO2 21.0 Crit Value Called To adam Gifford md Crit Value Called By Ricardo ruvalcaba Crit Value Read Back Y Blood Gas Notified Time 1802 Sodium 138.0 Potassium Chloride 109.0 H Carbon Dioxide Anion Gap BUN Creatinine Est GFR ( Amer) Est GFR (Non-Af Amer) Random Glucose Lactic Acid Calcium Phosphorus Magnesium Total Bilirubin AST ALT Alkaline Phosphatase Troponin I < 0.0120 NT-Pro-B Natriuret Pep Total Protein Albumin Globulin Albumin/Globulin Ratio Free T4 TSH 3rd Generation Venous Blood Potassium 4.8 Blood Type O POSITIVE Antibody Screen Negative Crossmatch See Detail BBK History Checked Patient has bt 11/18/18 11/18/18 11/18/18 04:35 04:35 04:35 WBC 9.0 RBC 3.11 L Hgb 9.5 L D Hct 28.2 L MCV 90.7 D MCH 30.6 MCHC 33.8 RDW 14.8 H Plt Count 204 MPV 8.7 Neut % (Auto) 64.3 Lymph % (Auto) 20.8 [place] % (Auto) 12.0 H Eos % (Auto) 2.4 Baso % (Auto) 0.5 Neut # (Auto) 5.8 Lymph # (Auto) 1.9 [place] # (Auto) 1.1 H Eos # (Auto) 0.2 Baso # (Auto) 0.0 PT INR APTT pO2 VBG pH VBG pCO2 VBG HCO3 VBG Total CO2 VBG O2 Sat (Calc) VBG Base Excess VBG Potassium Glucose Lactate FiO2 Crit Value Called To Crit Value Called By Crit Value Read Back Blood Gas Notified Time Sodium 138 Potassium 4.7 Chloride 109 H Carbon Dioxide 22 Anion Gap 12 BUN 40 H Creatinine 1.7 H Est GFR ( Amer) 34 Est GFR (Non-Af Amer) 28 Random Glucose 73 Lactic Acid Calcium 8.2 L Phosphorus 4.2 Magnesium 2.3 Total Bilirubin 1.0 AST 27 ALT 25 Alkaline Phosphatase 53 Troponin I < 0.0120 NT-Pro-B Natriuret Pep Total Protein 5.7 L Albumin 2.8 L Globulin 2.9 Albumin/Globulin Ratio 1.0 Free T4 1.58 TSH 3rd Generation 2.68 Venous Blood Potassium Blood Type Antibody Screen Crossmatch BBK History Checked 11/18/18 04:35 WBC RBC Hgb Hct MCV MCH MCHC RDW Plt Count MPV Neut % (Auto) Lymph % (Auto) [place] % (Auto) Eos % (Auto) Baso % (Auto) Neut # (Auto) Lymph # (Auto) [place] # (Auto) Eos # (Auto) Baso # (Auto) PT INR APTT pO2 VBG pH VBG pCO2 VBG HCO3 VBG Total CO2 VBG O2 Sat (Calc) VBG Base Excess VBG Potassium Glucose Lactate FiO2 Crit Value Called To Crit Value Called By Crit Value Read Back Blood Gas Notified Time Sodium Potassium Chloride Carbon Dioxide Anion Gap BUN Creatinine Est GFR ( Amer) Est GFR (Non-Af Amer) Random Glucose Lactic Acid 0.8 Calcium Phosphorus Magnesium Total Bilirubin AST ALT Alkaline Phosphatase Troponin I NT-Pro-B Natriuret Pep Total Protein Albumin Globulin Albumin/Globulin Ratio Free T4 TSH 3rd Generation Venous Blood Potassium Blood Type Antibody Screen Crossmatch BBK History Checked reviewed J.P. - EKG Data EKG comments: reviewed J.P. - Imaging and Cardiology Chest x-ray Status: Report reviewed by me (J.P.) Assessment & Plan (1) GI bleed Status: Acute Priority: High (2) Severe anemia Status: Acute Priority: High Comment: 2nd to GI bleeding. (3) Acute kidney injury superimposed on CKD Status: Acute Priority: High (4) HTN (hypertension) Status: Chronic Priority: Medium - Assessment and Plan (Free Text) Plan: After transfusion Hgb level in 7.5, f/u MRSA screen, Pt on Cipro, continue Sodium Chl, Metronidazole, Nitroglycerine 2% and rest of Tx. GI consult. - Date & Time Date: 11/18/18 Time: 13:00
[2018-11-19] MEDS: metroNIDAZOLE 500mg/100ml NS 250 MG in Premixed IV 1 EA IVPB SCH ×3 (00:45→17:24)
--- NOTE | 2018-11-19 01:50 | CON ---
DATE: 11/18/2018 REFERRING DOCTOR: Florencio Eric MD REASON FOR CONSULTATION: Rectal bleeding. HISTORY OF PRESENT ILLNESS: This is a very jovanny 88-year-old alf resident who has dementia and hypertension, comes in for a low hemoglobin. The patient is a very poor historian, but she is very pleasant. The patient is complaining of some left-sided abdominal discomfort and some pain on palpation. The family is saying that she has some weight loss because she is afraid to eat and does not want to eat. No fevers or chills. Currently lying in bed comfortable, in no apparent distress. PAST MEDICAL HISTORY: As above. PAST SURGICAL HISTORY: As above. MEDICATIONS: Have been reviewed. REVIEW OF SYSTEMS: All other systems have been reviewed and negative apart from the HPI. PHYSICAL EXAMINATION: VITAL SIGNS: Here in the hospital are grossly unremarkable. GENERAL: Pleasant elderly female, lying in bed comfortable, in no apparent distress.. HEENT: Head: Normocephalic and atraumatic. Eyes: Pupils are equal and reactive to light bilaterally. No conjunctival pallor or icterus. NECK: Supple. Normal range of motion. No lymph nodes appreciated. LUNGS: Coarse breath sounds bilaterally. HEART: S1 and S2. Regular rate and rhythm. No murmurs appreciated. ABDOMEN: Soft. Some discomfort and fullness in the left lower quadrant. No rebound. No guarding. RECTAL: Deferred. EXTREMITIES: Pulses felt bilaterally. SKIN: Warm, dry and intact. NEUROLOGICAL: Alert and oriented x2. LABORATORY DATA: Labs and radiology have been reviewed. WBC is 9.8, hemoglobin 9.5 after transfusion, hematocrit 28.2, platelet count is 204. ALT is normal. ProBNP is over 5000. ASSESSMENT AND PLAN: This is an 88-year-old female with left lower quadrant discomfort . From a gastrointestinal standpoint, I would recommend a CAT scan with oral and intravenous contrast once the creatinine improves. Clear liquid diet for now. Advance as tolerated. Pending CT. We will make further recommendations. Thank you for the consult. Jean-Paul Mckenna MD/ PhD cc: Florencio Eric MD [facility] # [phone]
[2018-11-19] MEDS: Dextrose 5%/0.45% NS 1,000 ML IV SCH ×2 (06:22→22:42)
[2018-11-19 06:29] LABS: HEMOGLOBIN 9.2 g/dL (12.0-16.0); MEAN CORPUSCULAR HGB CONC 32.9 g/dL (33.0-37.0); RBC 3.06 Mil/uL (3.80-5.20); RED CELL DISTRIBUTION WIDTH 14.7 % (11.5-14.5); WHITE BLOOD COUNT 7.6 K/uL (4.8-10.8)
[2018-11-19 06:42] LABS: ALB/GLOB RATIO 0.9 (1.0-2.1); ALBUMIN 2.7 g/dL (3.5-5.0); CALCIUM 8.3 mg/dL (8.4-10.2)
[2018-11-19] MEDS: Nitroglycerin 2% Ointment Foilpak UD TOP SCH ×4 (09:29→21:19)
[2018-11-19] MEDS: Ciprofloxacin 400mg/200ml D5W 400 MG/200 ML BAG IVPB SCH (09:29)
[2018-11-19] MEDS: Menthol/Methyl Salicylate Oinment TOP PRN (17:16)
--- NOTE | 2018-11-19 17:33 | CP.PCM.PN ---
Subjective - Date & Time of Evaluation Date of Evaluation: 11/19/18 Time of Evaluation: 14:50 - Subjective Subjective: F/U GI Bleeding LLQ pain Objective - Vital Signs/Intake and Output Vital Signs (last 24 hours): Temp Pulse Resp BP Pulse Ox 98.5 F 65 18 162/55 H 90 L 11/19/18 16:10 11/19/18 17:16 11/19/18 16:10 11/19/18 17:16 11/19/18 16:10 Intake and Output: 11/19/18 11/19/18 06:59 18:59 Intake Total 1230 Balance 1230 - Medications Medications: Current Medications Camphor/Menthol (Bengay) 1 applic TOP Q6 PRN PRN Reason: Pain, Mild (1-3) Last Admin: 11/19/18 17:16 Dose: 1 applic Clonidine HCl (Catapres) 0.2 mg PO BID [facility] Last Admin: 11/19/18 17:16 Dose: 0.2 mg Metoprolol Tartrate (Lopressor) 2.5 mg IVP Q4 PRN PRN Reason: Systolic Blood Pressure Last Admin: 11/18/18 00:00 Dose: 2.5 mg Nitroglycerin (Nitro-Bid 2% Oint) 2 ea TOP QID [facility] Last Admin: 11/19/18 13:50 Dose: 2 ea Pantoprazole Sodium (Protonix Inj) 40 mg IVP Q12 [facility] Last Admin: 11/19/18 09:25 Dose: 40 mg - Labs Labs: 11/19/18 04:30 11/19/18 04:30 PT 11.9 Seconds (9.8-13.1) 11/17/18 17:46 INR 1.0 11/17/18 17:46 APTT 31.3 Seconds (25.6-37.1) 11/17/18 17:46 - Constitutional Appears: No Acute Distress, Chronically Ill - Head Exam Head Exam: NORMAL INSPECTION - Eye Exam Eye Exam: PERRL - ENT Exam ENT Exam: Normal Exam - Neck Exam Neck Exam: Normal Inspection - Respiratory Exam Respiratory Exam: Decreased Breath Sounds - Cardiovascular Exam Cardiovascular Exam: REGULAR RHYTHM - GI/Abdominal Exam GI & Abdominal Exam: Soft, Tenderness (LLQ), Normal Bowel Sounds - Extremities Exam Additional comments: Edema BLE - Back Exam Additional comments: Sacral redness - Neurological Exam Neurological Exam: Awake Additional comments: O x2, follows commands. - Psychiatric Exam Additional comments: Calm - Skin Skin Exam: Warm Assessment and Plan (1) GI bleed Status: Acute (2) Severe anemia Status: Acute (3) Acute kidney injury superimposed on CKD Status: Acute (4) HTN (hypertension) Status: Chronic - Assessment and Plan (Free Text) Plan: Continue Cipro, Flagyl, clear fluid, IV fluid, monitor BP.
[2018-11-20 06:13] LABS: MEAN CELL VOLUME 90.2 fl (81.0-99.0); MEAN CORPUSCULAR HEMOGLOBIN 30.9 pg (27.0-31.0); MEAN CORPUSCULAR HGB CONC 34.2 g/dL (33.0-37.0); RBC 2.92 Mil/uL (3.80-5.20); RED CELL DISTRIBUTION WIDTH 14.8 % (11.5-14.5); WHITE BLOOD COUNT 7.1 K/uL (4.8-10.8)
[2018-11-20 06:36] LABS: ALB/GLOB RATIO 0.8 (1.0-2.1); ALBUMIN 2.4 g/dL (3.5-5.0)
[2018-11-20] MEDS: Ciprofloxacin 400mg/200ml D5W 400 MG/200 ML BAG IVPB SCH ×2 (09:24→21:00)
[2018-11-20] MEDS: Nitroglycerin 2% Ointment Foilpak UD TOP SCH ×5 (09:36→21:04)
[2018-11-20] MEDS: metroNIDAZOLE 500mg/100ml NS 100 ML IVPB SCH ×2 (10:59→21:00)
[2018-11-20] MEDS: Menthol/Methyl Salicylate Oinment TOP PRN (14:08)
--- NOTE | 2018-11-20 14:19 | CP.PCM.PN ---
Subjective - Date & Time of Evaluation Date of Evaluation: 11/20/18 Time of Evaluation: 11:40 - Subjective Subjective: F/U GI Bleeding Pt c/o of LLQ abdominal pain. Objective - Vital Signs/Intake and Output Vital Signs (last 24 hours): Temp Pulse Resp BP Pulse Ox 98 F 65 18 148/62 98 11/20/18 11:53 11/20/18 13:50 11/20/18 11:53 11/20/18 13:50 11/20/18 11:53 - Medications Medications: Current Medications Camphor/Menthol (Bengay) 1 applic TOP Q6 PRN PRN Reason: Pain, Mild (1-3) Last Admin: 11/20/18 14:08 Dose: 1 applic Clonidine HCl (Catapres) 0.2 mg PO BID [facility] Last Admin: 11/20/18 09:29 Dose: 0.2 mg Docusate Sodium (Colace Liquid) 100 mg PO BID [facility] Last Admin: 11/20/18 14:07 Dose: 100 mg Ciprofloxacin (Cipro 400mg/200ml Dsw) 400 mg in 200 mls @ 200 mls/hr IVPB Q12 [facility]; Protocol Last Admin: 11/20/18 09:24 Dose: 200 mls/hr Metronidazole (Flagyl 500mg/100ml Ns) 100 mls @ 100 mls/hr IVPB Q12 [facility]; Protocol Last Admin: 11/20/18 10:59 Dose: 100 mls/hr Dextrose/Sodium Chloride (Dextrose 5%/0.45% Ns 1000 Ml) 1,000 mls @ 50 mls/hr IV .Q20H [facility] Stop: 11/20/18 21:14 Last Admin: 11/19/18 22:42 Dose: 50 mls/hr Metoprolol Tartrate (Lopressor) 2.5 mg IVP Q4 PRN PRN Reason: Systolic Blood Pressure Last Admin: 11/18/18 00:00 Dose: 2.5 mg Nitroglycerin (Nitro-Bid 2% Oint) 2 ea TOP QID [facility] Last Admin: 11/20/18 13:50 Dose: 2 ea Pantoprazole Sodium (Protonix Inj) 40 mg IVP Q12 [facility] Last Admin: 11/20/18 09:32 Dose: 40 mg - Labs Labs: 11/20/18 05:35 11/20/18 05:35 PT 11.9 Seconds (9.8-13.1) 11/17/18 17:46 INR 1.0 11/17/18 17:46 APTT 31.3 Seconds (25.6-37.1) 11/17/18 17:46 - Constitutional Appears: No Acute Distress - Head Exam Head Exam: NORMAL INSPECTION - Eye Exam Eye Exam: PERRL - ENT Exam ENT Exam: Normal Exam - Neck Exam Neck Exam: Normal Inspection - Respiratory Exam Respiratory Exam: Decreased Breath Sounds - Cardiovascular Exam Cardiovascular Exam: REGULAR RHYTHM - GI/Abdominal Exam GI & Abdominal Exam: Guarding (mild LLQ), Soft, Tenderness (LLQ), Normal Bowel Sounds - Extremities Exam Additional comments: Edema BLE - Back Exam Additional comments: Sacral redness - Neurological Exam Neurological Exam: Awake Additional comments: Ox2, follows commands. - Psychiatric Exam Additional comments: Calm - Skin Skin Exam: Warm Assessment and Plan (1) GI bleed Status: Acute (2) Severe anemia Status: Acute (3) Acute kidney injury superimposed on CKD Status: Acute (4) HTN (hypertension) Status: Chronic - Assessment and Plan (Free Text) Plan: Creatinine 1.5, f/u Abd/Pelvis CT, Renal U-S, continue Cipro, Flagyl and rest of Tx.
[2018-11-20] MEDS ORDERED: Iohexol 240 (50 ml) PO ONE (15:15)
[2018-11-20] MEDS: Dextrose 5%/0.45% NS 1,000 ML IV SCH (18:13)
--- NOTE | 2018-11-20 18:32 | CT ---
Date of service: 11/20/2018 PROCEDURE: CT Abdomen and Pelvis with contrast HISTORY: abdominal pain COMPARISON: None. TECHNIQUE: Oral contrast only. Radiation dose: Total exam DLP = 454.96 mGy-cm. This CT exam was performed using one or more of the following dose reduction techniques: Automated exposure control, adjustment of the mA and/or kV according to patient size, and/or use of iterative reconstruction technique. FINDINGS: LOWER THORAX: Unremarkable. LIVER: Unremarkable. No gross lesion or ductal dilatation. GALLBLADDER AND BILE DUCTS: Unremarkable. PANCREAS: Unremarkable. No gross lesion or ductal dilatation. SPLEEN: Unremarkable. ADRENALS: Unremarkable. No mass. KIDNEYS AND URETERS: Unremarkable. No hydronephrosis. No solid mass. VASCULATURE: Atherosclerotic calcification and mural plaque present. Findings are seen throughout the aorta which is non aneurysmal. BOWEL: Fecal impaction, constipation. APPENDIX: Normal appendix. PERITONEUM: Unremarkable. No free fluid. No free air. LYMPH NODES: Unremarkable. No enlarged lymph nodes. BLADDER: Markedly distended urinary bladder. REPRODUCTIVE: Unremarkable. BONES: No acute fracture. OTHER FINDINGS: Flank edema/anasarca. IMPRESSION: Fecal impaction/constipation without mechanical obstructing lesion. Markedly distended urinary bladder. Lower lobe infiltrates and pleural effusions Additional benign and/or incidental findings described above.
[2018-11-21] MEDS: Ciprofloxacin 400mg/200ml D5W 400 MG/200 ML BAG IVPB SCH (08:48)
[2018-11-21] MEDS: metroNIDAZOLE 500mg/100ml NS 100 ML IVPB SCH (08:49)
[2018-11-21] MEDS: Nitroglycerin 2% Ointment Foilpak UD TOP SCH ×4 (08:49→21:13)
--- NOTE | 2018-11-21 09:18 | CP.PCM.PN ---
Subjective - Date & Time of Evaluation Date of Evaluation: 11/20/18 Time of Evaluation: 16:30 - Subjective Subjective: no overnight events Objective - Vital Signs/Intake and Output Vital Signs (last 24 hours): Temp Pulse Resp BP Pulse Ox 98.3 F 60 20 195/63 H 97 11/21/18 08:21 11/21/18 08:49 11/21/18 08:21 11/21/18 08:49 11/21/18 08:21 - Medications Medications: Current Medications Camphor/Menthol (Bengay) 1 applic TOP Q6 PRN PRN Reason: Pain, Mild (1-3) Last Admin: 11/20/18 14:08 Dose: 1 applic Clonidine HCl (Catapres) 0.2 mg PO BID [facility] Last Admin: 11/21/18 08:43 Dose: 0.2 mg Docusate Sodium (Colace Liquid) 100 mg PO BID [facility] Last Admin: 11/21/18 08:44 Dose: 100 mg Ciprofloxacin (Cipro 400mg/200ml Dsw) 400 mg in 200 mls @ 200 mls/hr IVPB Q12 [facility]; Protocol Last Admin: 11/21/18 08:48 Dose: 200 mls/hr Metronidazole (Flagyl 500mg/100ml Ns) 100 mls @ 100 mls/hr IVPB Q12 [facility]; Protocol Last Admin: 11/21/18 08:49 Dose: 100 mls/hr Lactulose (Enulose) 20 gm PO DAILY PRN PRN Reason: Constipation Last Admin: 11/20/18 18:12 Dose: 20 gm Metoprolol Tartrate (Lopressor) 2.5 mg IVP Q4 PRN PRN Reason: Systolic Blood Pressure Last Admin: 11/18/18 00:00 Dose: 2.5 mg Nitroglycerin (Nitro-Bid 2% Oint) 2 ea TOP QID [facility] Last Admin: 11/21/18 08:49 Dose: 2 ea Nystatin (Nystop Topical Powder) 1 applic TOP TID [facility] Last Admin: 11/21/18 08:44 Dose: 1 applic Pantoprazole Sodium (Protonix Inj) 40 mg IVP Q12 [facility] Last Admin: 11/21/18 08:45 Dose: 40 mg - Labs Labs: 11/20/18 05:35 11/20/18 05:35 PT 11.9 Seconds (9.8-13.1) 11/17/18 17:46 INR 1.0 11/17/18 17:46 APTT 31.3 Seconds (25.6-37.1) 11/17/18 17:46 - Neck Exam Neck Exam: Normal Inspection - Respiratory Exam Respiratory Exam: Clear to Ausculation Bilateral, NORMAL BREATHING PATTERN - Cardiovascular Exam Cardiovascular Exam: REGULAR RHYTHM - GI/Abdominal Exam GI & Abdominal Exam: Soft, Normal Bowel Sounds Assessment and Plan - Assessment and Plan (Free Text) Assessment: 88 yo female with abd pain CT ordered ADAT
--- NOTE | 2018-11-21 10:12 | CP.PCM.PN ---
Subjective - Date & Time of Evaluation Date of Evaluation: 11/21/18 Time of Evaluation: 10:11 - Subjective Subjective: no overnight events Objective - Vital Signs/Intake and Output Vital Signs (last 24 hours): Temp Pulse Resp BP Pulse Ox 98.3 F 60 20 195/63 H 97 11/21/18 08:21 11/21/18 08:49 11/21/18 08:21 11/21/18 08:49 11/21/18 08:21 - Medications Medications: Current Medications Camphor/Menthol (Bengay) 1 applic TOP Q6 PRN PRN Reason: Pain, Mild (1-3) Last Admin: 11/20/18 14:08 Dose: 1 applic Clonidine HCl (Catapres) 0.2 mg PO BID [facility] Last Admin: 11/21/18 08:43 Dose: 0.2 mg Docusate Sodium (Colace Liquid) 100 mg PO BID [facility] Last Admin: 11/21/18 08:44 Dose: 100 mg Lactulose (Enulose) 20 gm PO DAILY PRN PRN Reason: Constipation Last Admin: 11/20/18 18:12 Dose: 20 gm Metoprolol Tartrate (Lopressor) 2.5 mg IVP Q4 PRN PRN Reason: Systolic Blood Pressure Last Admin: 11/18/18 00:00 Dose: 2.5 mg Nitroglycerin (Nitro-Bid 2% Oint) 2 ea TOP QID [facility] Last Admin: 11/21/18 08:49 Dose: 2 ea Nystatin (Nystop Topical Powder) 1 applic TOP TID [facility] Last Admin: 11/21/18 08:44 Dose: 1 applic Pantoprazole Sodium (Protonix Inj) 40 mg IVP Q12 [facility] Last Admin: 11/21/18 08:45 Dose: 40 mg - Labs Labs: 11/20/18 05:35 11/20/18 05:35 PT 11.9 Seconds (9.8-13.1) 11/17/18 17:46 INR 1.0 11/17/18 17:46 APTT 31.3 Seconds (25.6-37.1) 11/17/18 17:46 - Neck Exam Neck Exam: Normal Inspection - Respiratory Exam Respiratory Exam: Clear to Ausculation Bilateral, NORMAL BREATHING PATTERN - Cardiovascular Exam Cardiovascular Exam: REGULAR RHYTHM Assessment and Plan - Assessment and Plan (Free Text) Assessment: 88 yo female with constipation laxatives distended bladder
[2018-11-21] MEDS: Clindamycin in NS 300 MG/50 ML BAG IV SCH ×2 (11:40→21:10)
--- NOTE | 2018-11-21 13:20 | CP.PCM.PN ---
Subjective - Date & Time of Evaluation Date of Evaluation: 11/21/18 Time of Evaluation: 11:50 - Subjective Subjective: F/U GI Bleeding. Pt c/o of pain in LLQ., mild SOB earlier, having cough, on O2 NC 2 L/M. Objective - Vital Signs/Intake and Output Vital Signs (last 24 hours): Temp Pulse Resp BP Pulse Ox 98.8 F 58 L 20 146/67 100 11/21/18 12:24 11/21/18 12:24 11/21/18 12:24 11/21/18 12:24 11/21/18 12:24 - Medications Medications: Current Medications Albuterol/Ipratropium (Duoneb 3 Mg/0.5 Mg (3 Ml) Ud) 3 ml INH RTID [facility] Camphor/Menthol (Bengay) 1 applic TOP Q6 PRN PRN Reason: Pain, Mild (1-3) Last Admin: 11/20/18 14:08 Dose: 1 applic Clonidine HCl (Catapres) 0.2 mg PO BID [facility] Last Admin: 11/21/18 08:43 Dose: 0.2 mg Docusate Sodium (Colace Liquid) 100 mg PO BID [facility] Last Admin: 11/21/18 08:44 Dose: 100 mg Clindamycin in NS (Clindamycin 300 Mg/50 Ml-Ns) 300 mg in 50 mls @ 100 mls/hr IV Q12 [facility]; Protocol Last Admin: 11/21/18 11:40 Dose: 100 mls/hr Piperacillin Sod/Tazobactam (Sod 2.25 gm/ Sodium Chloride) 100 mls @ 100 mls/hr IVPB Q8 [facility]; Protocol Last Admin: 11/21/18 11:37 Dose: 100 mls/hr Lactulose (Enulose) 20 gm PO DAILY [facility] Last Admin: 11/21/18 11:43 Dose: 20 gm Metoprolol Tartrate (Lopressor) 2.5 mg IVP Q4 PRN PRN Reason: Systolic Blood Pressure Last Admin: 11/18/18 00:00 Dose: 2.5 mg Nitroglycerin (Nitro-Bid 2% Oint) 2 ea TOP QID [facility] Last Admin: 11/21/18 08:49 Dose: 2 ea Nystatin (Nystop Topical Powder) 1 applic TOP TID [facility] Last Admin: 11/21/18 08:44 Dose: 1 applic Pantoprazole Sodium (Protonix Inj) 40 mg IVP Q12 [facility] Last Admin: 11/21/18 08:45 Dose: 40 mg - Labs Labs: 11/20/18 05:35 11/20/18 05:35 PT 11.9 Seconds (9.8-13.1) 11/17/18 17:46 INR 1.0 11/17/18 17:46 APTT 31.3 Seconds (25.6-37.1) 11/17/18 17:46 - Constitutional Appears: No Acute Distress, Confused - Head Exam Head Exam: NORMAL INSPECTION - Eye Exam Eye Exam: PERRL - ENT Exam ENT Exam: Normal Exam - Neck Exam Neck Exam: Normal Inspection - Respiratory Exam Respiratory Exam: Decreased Breath Sounds (at abse ) - Cardiovascular Exam Cardiovascular Exam: REGULAR RHYTHM - GI/Abdominal Exam GI & Abdominal Exam: Soft, Tenderness (LLQ), Normal Bowel Sounds - Extremities Exam Additional comments: Edema BLE - Back Exam Additional comments: Sacral redness - Neurological Exam Neurological Exam: Awake Additional comments: O x2, follows commands. - Psychiatric Exam Additional comments: Calm - Skin Skin Exam: Warm Assessment and Plan (1) GI bleed Status: Acute (2) Severe anemia Status: Acute (3) Acute kidney injury superimposed on CKD Status: Acute (4) HTN (hypertension) Status: Chronic (5) Pneumonia Status: Acute (6) Urinary retention Status: Acute - Assessment and Plan (Free Text) Plan: CT Abd/Pelvis showed: Constipation with no obstruction, urinary bladder markedly distended, also found with L lower lobe infiltrate and pleural effusions. PICC line, start Zosyn, Clindamycin, Lactulose, Fleet enema, Melo Cath and rest of tx, Urology consult.
[2018-11-21] MEDS: Albuterol-Ipratrop 3 mg / 0.5 (3 ml) UD INH SCH ×2 (13:39→19:05)
--- NOTE | 2018-11-21 19:27 | US ---
Date of service: 11/21/2018 PROCEDURE: Ultrasound of the Kidneys HISTORY: GI bleed COMPARISON: Noncontrast abdomen ultrasound 11/20/2018.. TECHNIQUE: Sonogram of the kidneys. FINDINGS: RIGHT KIDNEY: Measures: 7.9 x 4.5 x 3.7 cm. Lower limits normal size and normal contour however poor corticomedullary differentiation is appreciated which may indicate intrinsic medical renal disease. No stone, solid mass lesion or hydronephrosis visualized. LEFT KIDNEY: Measures: 8.8 x 3.9 x 3.4 cm. Normal size and contour however poor corticomedullary differentiation is appreciated which may indicate intrinsic medical renal disease. No stone, solid mass lesion or hydronephrosis visualized. OTHER FINDINGS: None. IMPRESSION: Poor corticomedullary differentiation may indicate intrinsic medical renal disease. Lower limits normal size right kidney. No obstructive uropathy, definitive mass or urolithiasis identified bilaterally.
[2018-11-22] MEDS ORDERED: Benzocaine/Menthol (Cepacol) Lozenge PO ONE (04:48)
[2018-11-22] MEDS: Albuterol-Ipratrop 3 mg / 0.5 (3 ml) UD INH SCH ×3 (07:18→19:18)
[2018-11-22] MEDS: Nitroglycerin 2% Ointment Foilpak UD TOP SCH ×4 (09:53→21:16)
[2018-11-22] MEDS: Clindamycin in NS 300 MG/50 ML BAG IV SCH ×2 (09:54→20:48)
[2018-11-22] MEDS ORDERED: Lidocaine Hydrochloride 5 ML INJ ONE (10:31)
--- NOTE | 2018-11-22 10:42 | PCM.SURG1 ---
Surgeon's Initial Post Op Note - Surgeon's Notes Surgeon: Bala Tate MD Cloud Developer: NONE Type of Anesthesia: Local Pre-Operative Diagnosis: Poor venous access Operative Findings: US showed a patent right basilic vein. Post-Operative Diagnosis: Poor venous access Operation Performed: Single lumen picc placement right arm, 37 cm. Tip is in the SVC. Specimen/Specimens Removed: NONE Estimated Blood Loss: EBL {In ML}: 2 Blood Products Given: N/A Post-Op Condition: Fair Date of Surgery/Procedure: 11/22/18 Time of Surgery/Procedure: 10:42
--- NOTE | 2018-11-22 10:49 | VASCULAR ---
PROCEDURE: Date of procedure: 11/22/2018 Procedure: 1. Placement of a right arm PICC with ultrasound and fluoroscopic guidance, CPT 80836 2. PICC tip confirmation with spot radiograph and is in the superior vena cava Medications: 1 percent lidocaine Total Fluoro time: 2.4 Seconds Radiation:0.36 MGy EBL: 2 cc HISTORY: Infection requiring long-term IV antibiotics TECHNIQUE: Following informed consent and procedure time-out, the patient was placed supine on the interventional table and the right arm prepped and draped in the usual sterile fashion. Ultrasound showed a patent and compressible right basilic vein. After the skin was anesthetized with lidocaine, the basilic vein was accessed with micro micropuncture technique using ultrasound guidance. A guidewire was then advanced under fluoroscopic guidance into the superior vena cava. An image documenting ultrasound guidance for vascular access was permanently saved. The length of the single-lumen 4 [place]zer[place] PICC was trimmed to 37 centimeters and advanced through a peel-away sheath. The PICC was position with tip of PICC confirm a spot radiograph the superior vena cava. The PICC was secured to the patient's skin. The PICC was flushed. A biopatch and sterile dressing was applied. IMPRESSION: Placement of a single-lumen 4 Azeri PICC trimmed to 37 centimeters via right basilic vein. The tip of the PICC is confirmed with spot radiograph and is in the superior vena cava.
--- NOTE | 2018-11-22 12:25 | US ---
Date of service: 11/21/2018 PROCEDURE: Bilateral lower extremity venous duplex Doppler. HISTORY: pain COMPARISON: None available. TECHNIQUE: Bilateral common femoral, superficial femoral, popliteal and posterior tibial veins were evaluated. Flow was assessed with color Doppler, compressibility, assessment of phasic flow and augmentation response. FINDINGS: COMMON FEMORAL VEIN: Right CFV: Unremarkable. Left CFV: Unremarkable. SUPERFICIAL FEMORAL VEIN: Right SFV: Unremarkable. Left SFV: Unremarkable. POPLITEAL VEIN: Right Popliteal: Unremarkable. Left Popliteal: Unremarkable. POSTERIOR TIBIAL VEIN: Right PTV: Unremarkable. Left PTV: Unremarkable. OTHER FINDINGS: None. IMPRESSION: No evidence of deep venous thrombosis. Concordant findings (preliminary report) provided by [facility].
--- NOTE | 2018-11-22 15:39 | CP.PCM.PN ---
Objective - Vital Signs/Intake and Output Vital Signs (last 24 hours): Temp Pulse Resp BP Pulse Ox 98.3 F 64 20 107/65 98 11/22/18 12:04 11/22/18 12:04 11/22/18 12:04 11/22/18 12:04 11/22/18 12:04 - Medications Medications: Current Medications Albuterol/Ipratropium (Duoneb 3 Mg/0.5 Mg (3 Ml) Ud) 3 ml INH RTID [facility] Last Admin: 11/22/18 13:19 Dose: 3 ml Camphor/Menthol (Bengay) 1 applic TOP Q6 PRN PRN Reason: Pain, Mild (1-3) Last Admin: 11/20/18 14:08 Dose: 1 applic Clonidine HCl (Catapres) 0.2 mg PO BID [facility] Last Admin: 11/22/18 09:03 Dose: 0.2 mg Docusate Sodium (Colace Liquid) 100 mg PO BID [facility] Last Admin: 11/22/18 09:02 Dose: 100 mg Clindamycin in NS (Clindamycin 300 Mg/50 Ml-Ns) 300 mg in 50 mls @ 100 mls/hr IV Q12 [facility]; Protocol Last Admin: 11/22/18 09:54 Dose: 100 mls/hr Piperacillin Sod/Tazobactam (Sod 2.25 gm/ Sodium Chloride) 100 mls @ 100 mls/hr IVPB Q8 [facility]; Protocol Last Admin: 11/22/18 08:55 Dose: 100 mls/hr Lactulose (Enulose) 20 gm PO DAILY [facility] Last Admin: 11/22/18 09:02 Dose: 20 gm Metoprolol Tartrate (Lopressor) 2.5 mg IVP Q4 PRN PRN Reason: Systolic Blood Pressure Last Admin: 11/18/18 00:00 Dose: 2.5 mg Nitroglycerin (Nitro-Bid 2% Oint) 2 ea TOP QID [facility] Last Admin: 11/22/18 12:49 Dose: Not Given Nystatin (Nystop Topical Powder) 1 applic TOP TID [facility] Last Admin: 11/22/18 12:49 Dose: Not Given Pantoprazole Sodium (Protonix Inj) 40 mg IVP Q12 [facility] Last Admin: 11/22/18 09:00 Dose: 40 mg - Labs Labs: 11/20/18 05:35 11/20/18 05:35 PT 11.9 Seconds (9.8-13.1) 11/17/18 17:46 INR 1.0 11/17/18 17:46 APTT 31.3 Seconds (25.6-37.1) 11/17/18 17:46 Assessment and Plan (1) GI bleed Status: Acute (2) Severe anemia Status: Acute (3) Acute kidney injury superimposed on CKD Status: Acute (4) HTN (hypertension) Status: Chronic (5) Pneumonia Status: Acute
--- NOTE | 2018-11-22 16:06 | CP.PCM.DIS ---
Provider - Provider Date of Admission: 11/17/18 18:25 Attending physician: Florencio Eric MD Consults: 11/17/18 18:28 Gastroenterology Consult Stat Comment: Consulting Provider: Jean-Paul Mckenna Consulting Physician: Jean-Paul Mckenna Reason for Consult: GI bleed 11/17/18 19:58 Critical Care Consult Stat Comment: Consulting Provider: Rodo Villeda Consulting Physician: Rodo Villeda Reason for Consult: severe anemia, renal failure 11/18/18 08:00 Case Management Referral Routine Comment: Physician Instructions: Reason For Exam: FROM LONG-TERM Reason for Referral: Unified Communications Architect Eval Nursing Referral for Wound Care Routine Comment: Physician Instructions: Reason For Exam: LEFT HEEL SCAB 11/22/18 11:06 Urology Consult Routine Comment: Consulting Provider: eJan-Paul Mason Jr. Consulting Physician: Jean-Paul Mason Jr. Reason for Consult: distended bladder ct scan Diagnosis - Discharge Diagnosis (1) GI bleed Status: Acute Priority: High (2) Severe anemia Status: Acute Priority: High (3) Acute kidney injury superimposed on CKD Status: Acute Priority: High (4) HTN (hypertension) Status: Chronic Priority: Medium (5) Pneumonia Status: Acute Hospital Course - Lab Results Lab Results: Micro Results 11/18/18 01:15 Naris MRSA Culture (Admit) - Final MRSA NOT DETECTED Most Recent Lab Values WBC 7.1 K/uL (4.8-10.8) 11/20/18 05:35 RBC 2.92 Mil/uL (3.80-5.20) L 11/20/18 05:35 Hgb 9.0 g/dL (12.0-16.0) L 11/20/18 05:35 Hct 26.3 % (34.0-47.0) L 11/20/18 05:35 MCV 90.2 fl (81.0-99.0) 11/20/18 05:35 MCH 30.9 pg (27.0-31.0) 11/20/18 05:35 MCHC 34.2 g/dL (33.0-37.0) 11/20/18 05:35 RDW 14.8 % (11.5-14.5) H 11/20/18 05:35 Plt Count 214 K/uL (130-400) 11/20/18 05:35 MPV 8.7 fl (7.2-11.7) 11/18/18 04:35 Neut % (Auto) 64.3 % (50.0-75.0) 11/18/18 04:35 Lymph % (Auto) 20.8 % (20.0-40.0) 11/18/18 04:35 [place] % (Auto) 12.0 % (0.0-10.0) H 11/18/18 04:35 Eos % (Auto) 2.4 % (0.0-4.0) 11/18/18 04:35 Baso % (Auto) 0.5 % (0.0-2.0) 11/18/18 04:35 Neut # (Auto) 5.8 K/uL (1.8-7.0) 11/18/18 04:35 Lymph # (Auto) 1.9 K/uL (1.0-4.3) 11/18/18 04:35 [place] # (Auto) 1.1 K/uL (0.0-0.8) H 11/18/18 04:35 Eos # (Auto) 0.2 K/uL (0.0-0.7) 11/18/18 04:35 Baso # (Auto) 0.0 K/uL (0.0-0.2) 11/18/18 04:35 PT 11.9 Seconds (9.8-13.1) 11/17/18 17:46 INR 1.0 11/17/18 17:46 APTT 31.3 Seconds (25.6-37.1) 11/17/18 17:46 pO2 25 mm/Hg (30-55) L 11/17/18 17:51 VBG pH 7.38 (7.32-7.43) 11/17/18 17:51 VBG pCO2 38 mmHg (40-60) L 11/17/18 17:51 VBG HCO3 21.7 mmol/L 11/17/18 17:51 VBG Total CO2 23.7 mmol/L (22-28) 11/17/18 17:51 VBG O2 Sat (Calc) 55.4 % (40-65) 11/17/18 17:51 VBG Base Excess -2.3 mmol/L (0.0-2.0) L 11/17/18 17:51 VBG Potassium 4.8 mmol/L (3.6-5.2) 11/17/18 17:51 Sodium 138.0 mmol/L (132-148) 11/17/18 17:51 Chloride 109.0 mmol/L (98-107) H 11/17/18 17:51 Glucose 139 mg/dL (65-105) H 11/17/18 17:51 Lactate 2.0 mmol/L (0.7-2.1) 11/17/18 17:51 FiO2 21.0 % 11/17/18 17:51 Crit Value Called To adam Gifford md 11/17/18 17:51 Crit Value Called By Ricardo ruvalcaba 11/17/18 17:51 Crit Value Read Back Y 11/17/18 17:51 Blood Gas Notified Time 1802 11/17/18 17:51 Sodium 132 mmol/l (132-148) 11/20/18 05:35 Potassium 4.0 MMOL/L (3.6-5.0) 11/20/18 05:35 Chloride 105 mmol/L (98-107) 11/20/18 05:35 Carbon Dioxide 19 mmol/L (22-30) L 11/20/18 05:35 Anion Gap 12 (10-20) 11/20/18 05:35 BUN 27 mg/dl (7-17) H 11/20/18 05:35 Creatinine 1.5 mg/dl (0.7-1.2) H 11/20/18 05:35 Est GFR ( Amer) 40 11/20/18 05:35 Est GFR (Non-Af Amer) 33 11/20/18 05:35 Random Glucose 93 mg/dL (65-105) 11/20/18 05:35 Lactic Acid 0.8 mmol/L (0.7-2.1) 11/18/18 04:35 Calcium 8.0 mg/dL (8.4-10.2) L 11/20/18 05:35 Phosphorus 4.1 mg/dl (2.5-4.5) 11/20/18 05:35 Magnesium 1.8 MG/DL (1.6-2.3) 11/20/18 05:35 Total Bilirubin 0.6 mg/dl (0.2-1.3) 11/20/18 05:35 AST 18 U/L (14-36) 11/20/18 05:35 ALT 27 U/L (9-52) 11/20/18 05:35 Alkaline Phosphatase 45 U/L (38-126) 11/20/18 05:35 Troponin I < 0.0120 ng/mL (0.00-0.120) 11/18/18 04:35 NT-Pro-B Natriuret Pep 5620 pg/ml (0-900) H 11/17/18 17:46 Total Protein 5.3 G/DL (6.3-8.2) L 11/20/18 05:35 Albumin 2.4 g/dL (3.5-5.0) L 11/20/18 05:35 Globulin 2.9 gm/dL (2.2-3.9) 11/20/18 05:35 Albumin/Globulin Ratio 0.8 (1.0-2.1) L 11/20/18 05:35 Free T4 1.58 ng/dL (0.78-2.19) 11/18/18 04:35 TSH 3rd Generation 4.63 mIU/ML (0.46-4.68) 11/20/18 05:35 Venous Blood Potassium 4.8 mmol/L (3.6-5.2) 11/17/18 17:51 Blood Type O POSITIVE 11/17/18 17:46 Antibody Screen Negative 11/17/18 17:46 Crossmatch See Detail 11/17/18 17:46 BBK History Checked Patient has bt 11/17/18 17:46 Discharge Exam - Head Exam Head Exam: NORMAL INSPECTION Discharge Plan - Follow Up Plan Condition: CRITICAL Disposition: HOME/ ROUTINE Instructions: Gastrointestinal Bleeding (DC) Referrals: Jean-Paul Mckenna MD, PhD [Staff Provider] - Florencio Eric MD [Staff Provider] -
--- NOTE | 2018-11-22 19:46 | CP.PCM.PN ---
Subjective - Date & Time of Evaluation Date of Evaluation: 11/22/18 Time of Evaluation: 19:42 - Subjective Subjective: Pt examined chart reviewed. 89 year olld female w hx urinary retention and 1000cc pvr now has [facility]. Suggest Discharge with [facility] begin pt on urocholine 50 mg qid give voiding trial in 2 to 3 weeks if pt fails to void further eval may be useful. Hosay Objective - Vital Signs/Intake and Output Vital Signs (last 24 hours): Temp Pulse Resp BP Pulse Ox 98.1 F 81 18 121/57 L 100 11/22/18 16:03 11/22/18 16:20 11/22/18 16:03 11/22/18 16:20 11/22/18 16:03 Intake and Output: 11/22/18 11/23/18 18:59 06:59 Intake Total 300 Output Total 350 Balance -50 - Medications Medications: Current Medications Albuterol/Ipratropium (Duoneb 3 Mg/0.5 Mg (3 Ml) Ud) 3 ml INH RTID [facility] Last Admin: 11/22/18 19:18 Dose: 3 ml Camphor/Menthol (Bengay) 1 applic TOP Q6 PRN PRN Reason: Pain, Mild (1-3) Last Admin: 11/20/18 14:08 Dose: 1 applic Clonidine HCl (Catapres) 0.2 mg PO BID [facility] Last Admin: 11/22/18 16:19 Dose: 0.2 mg Docusate Sodium (Colace Liquid) 100 mg PO BID [facility] Last Admin: 11/22/18 16:20 Dose: 100 mg Clindamycin in NS (Clindamycin 300 Mg/50 Ml-Ns) 300 mg in 50 mls @ 100 mls/hr IV Q12 [facility]; Protocol Last Admin: 11/22/18 09:54 Dose: 100 mls/hr Piperacillin Sod/Tazobactam (Sod 2.25 gm/ Sodium Chloride) 100 mls @ 100 mls/hr IVPB Q8 [facility]; Protocol Last Admin: 11/22/18 16:21 Dose: 100 mls/hr Lactulose (Enulose) 20 gm PO DAILY [facility] Last Admin: 11/22/18 09:02 Dose: 20 gm Metoprolol Tartrate (Lopressor) 2.5 mg IVP Q4 PRN PRN Reason: Systolic Blood Pressure Last Admin: 11/18/18 00:00 Dose: 2.5 mg Nitroglycerin (Nitro-Bid 2% Oint) 2 ea TOP QID [facility] Last Admin: 11/22/18 16:20 Dose: 2 ea Nystatin (Nystop Topical Powder) 1 applic TOP TID [facility] Last Admin: 11/22/18 16:20 Dose: 1 applic Pantoprazole Sodium (Protonix Inj) 40 mg IVP Q12 [facility] Last Admin: 11/22/18 09:00 Dose: 40 mg - Labs Labs: 11/20/18 05:35 11/20/18 05:35 PT 11.9 Seconds (9.8-13.1) 11/17/18 17:46 INR 1.0 11/17/18 17:46 APTT 31.3 Seconds (25.6-37.1) 11/17/18 17:46
--- NOTE | 2018-11-22 20:22 | CP.PCM.PN ---
Subjective - Subjective Subjective: no AD, no cough, no SOB, no abdominal pain Objective - Vital Signs/Intake and Output Vital Signs (last 24 hours): Temp Pulse Resp BP Pulse Ox 98.4 F 76 18 97/56 L 97 11/22/18 19:51 11/22/18 19:54 11/22/18 19:51 11/22/18 19:51 11/22/18 19:51 Intake and Output: 11/22/18 11/23/18 18:59 06:59 Intake Total 300 Output Total 350 Balance -50 - Medications Medications: Current Medications Albuterol/Ipratropium (Duoneb 3 Mg/0.5 Mg (3 Ml) Ud) 3 ml INH RTID [facility] Last Admin: 11/22/18 19:18 Dose: 3 ml Bethanechol Chloride (Urecholine) 50 mg PO QID [facility] Camphor/Menthol (Bengay) 1 applic TOP Q6 PRN PRN Reason: Pain, Mild (1-3) Last Admin: 11/20/18 14:08 Dose: 1 applic Clonidine HCl (Catapres) 0.2 mg PO BID [facility] Last Admin: 11/22/18 16:19 Dose: 0.2 mg Docusate Sodium (Colace Liquid) 100 mg PO BID [facility] Last Admin: 11/22/18 16:20 Dose: 100 mg Clindamycin in NS (Clindamycin 300 Mg/50 Ml-Ns) 300 mg in 50 mls @ 100 mls/hr IV Q12 [facility]; Protocol Last Admin: 11/22/18 09:54 Dose: 100 mls/hr Piperacillin Sod/Tazobactam (Sod 2.25 gm/ Sodium Chloride) 100 mls @ 100 mls/hr IVPB Q8 [facility]; Protocol Last Admin: 11/22/18 16:21 Dose: 100 mls/hr Lactulose (Enulose) 20 gm PO DAILY [facility] Last Admin: 11/22/18 09:02 Dose: 20 gm Metoprolol Tartrate (Lopressor) 2.5 mg IVP Q4 PRN PRN Reason: Systolic Blood Pressure Last Admin: 11/18/18 00:00 Dose: 2.5 mg Nitroglycerin (Nitro-Bid 2% Oint) 2 ea TOP QID [facility] Last Admin: 11/22/18 16:20 Dose: 2 ea Nystatin (Nystop Topical Powder) 1 applic TOP TID [facility] Last Admin: 11/22/18 16:20 Dose: 1 applic Pantoprazole Sodium (Protonix Inj) 40 mg IVP Q12 [facility] Last Admin: 11/22/18 09:00 Dose: 40 mg - Labs Labs: 11/20/18 05:35 11/20/18 05:35 PT 11.9 Seconds (9.8-13.1) 11/17/18 17:46 INR 1.0 11/17/18 17:46 APTT 31.3 Seconds (25.6-37.1) 11/17/18 17:46 - Constitutional Appears: No Acute Distress - Head Exam Head Exam: NORMAL INSPECTION - Eye Exam Eye Exam: PERRL - ENT Exam ENT Exam: Normal Exam - Neck Exam Neck Exam: Normal Inspection - Respiratory Exam Respiratory Exam: Decreased Breath Sounds (at bases) - Cardiovascular Exam Cardiovascular Exam: REGULAR RHYTHM - GI/Abdominal Exam GI & Abdominal Exam: Soft, Normal Bowel Sounds - Exam Additional comments: Melo Cath - Extremities Exam Extremities Exam: Normal Inspection - Back Exam Back Exam: NORMAL INSPECTION - Neurological Exam Neurological Exam: Alert, CN II-XII Intact Additional comments: no focal motor/sensory deficit - Psychiatric Exam Psychiatric exam: Normal Affect - Skin Skin Exam: Warm Assessment and Plan (1) GI bleed Status: Acute (2) Severe anemia Status: Acute (3) Acute kidney injury superimposed on CKD Status: Acute (4) HTN (hypertension) Status: Chronic (5) Pneumonia Status: Acute (6) Urinary retention Status: Acute - Assessment and Plan (Free Text) Plan: continue Duo Neb, Clinda, Zosyn Melo Cath and rest of Tx
[2018-11-22] MEDS: Bethanechol 50 MG TAB PO SCH (21:07)
[2018-11-22 23:49] VITALS: RESP 18
[2018-11-23 05:13] VITALS: O2SAT 96
[2018-11-23 07:58] VITALS: BP 132/76; PULSE 75; TEMP 98.5
[2018-11-23] MEDS: Albuterol-Ipratrop 3 mg / 0.5 (3 ml) UD INH SCH ×2 (08:33→13:03)
[2018-11-23] MEDS ORDERED: Clindamycin in NS 300 MG/50 ML BAG IV SCH (09:00)
[2018-11-23] MEDS ORDERED: Clindamycin in D5W 300 MG/50 ML BAG IV SCH ×2 (09:00→21:00)
[2018-11-23] MEDS: Nitroglycerin 2% Ointment Foilpak UD TOP SCH (10:47)
[2018-11-23] MEDS: Bethanechol 50 MG TAB PO SCH (10:49)
--- NOTE | 2018-11-23 16:00 | CP.PCM.DIS ---
Provider - Provider Date of Admission: 11/17/18 18:25 Attending physician: Florencio Eric MD Consults: 11/17/18 18:28 Gastroenterology Consult Stat Comment: Consulting Provider: Jean-Paul Mckenna Consulting Physician: Jean-Paul Mckenna Reason for Consult: GI bleed 11/17/18 19:58 Critical Care Consult Stat Comment: Consulting Provider: Rodo Villeda Consulting Physician: Rodo Villeda Reason for Consult: severe anemia, renal failure 11/18/18 08:00 Case Management Referral Routine Comment: Physician Instructions: Reason For Exam: FROM SNF Reason for Referral: Branch Operation Evaluation Manager Eval Nursing Referral for Wound Care Routine Comment: Physician Instructions: Reason For Exam: LEFT HEEL SCAB 11/22/18 11:06 Urology Consult Routine Comment: Consulting Provider: Jean-Paul Mason Jr. Consulting Physician: Jean-Paul Mason Jr. Reason for Consult: distended bladder ct scan Diagnosis - Discharge Diagnosis (1) GI bleed Status: Acute Priority: High (2) Severe anemia Status: Acute Priority: High (3) Acute kidney injury superimposed on CKD Status: Acute Priority: High (4) HTN (hypertension) Status: Chronic Priority: Medium (5) Pneumonia Status: Acute Hospital Course - Lab Results Lab Results: Micro Results 11/18/18 01:15 Naris MRSA Culture (Admit) - Final MRSA NOT DETECTED Most Recent Lab Values WBC 7.1 K/uL (4.8-10.8) 11/20/18 05:35 RBC 2.92 Mil/uL (3.80-5.20) L 11/20/18 05:35 Hgb 9.0 g/dL (12.0-16.0) L 11/20/18 05:35 Hct 26.3 % (34.0-47.0) L 11/20/18 05:35 MCV 90.2 fl (81.0-99.0) 11/20/18 05:35 MCH 30.9 pg (27.0-31.0) 11/20/18 05:35 MCHC 34.2 g/dL (33.0-37.0) 11/20/18 05:35 RDW 14.8 % (11.5-14.5) H 11/20/18 05:35 Plt Count 214 K/uL (130-400) 11/20/18 05:35 MPV 8.7 fl (7.2-11.7) 11/18/18 04:35 Neut % (Auto) 64.3 % (50.0-75.0) 11/18/18 04:35 Lymph % (Auto) 20.8 % (20.0-40.0) 11/18/18 04:35 [place] % (Auto) 12.0 % (0.0-10.0) H 11/18/18 04:35 Eos % (Auto) 2.4 % (0.0-4.0) 11/18/18 04:35 Baso % (Auto) 0.5 % (0.0-2.0) 11/18/18 04:35 Neut # (Auto) 5.8 K/uL (1.8-7.0) 11/18/18 04:35 Lymph # (Auto) 1.9 K/uL (1.0-4.3) 11/18/18 04:35 [place] # (Auto) 1.1 K/uL (0.0-0.8) H 11/18/18 04:35 Eos # (Auto) 0.2 K/uL (0.0-0.7) 11/18/18 04:35 Baso # (Auto) 0.0 K/uL (0.0-0.2) 11/18/18 04:35 PT 11.9 Seconds (9.8-13.1) 11/17/18 17:46 INR 1.0 11/17/18 17:46 APTT 31.3 Seconds (25.6-37.1) 11/17/18 17:46 pO2 25 mm/Hg (30-55) L 11/17/18 17:51 VBG pH 7.38 (7.32-7.43) 11/17/18 17:51 VBG pCO2 38 mmHg (40-60) L 11/17/18 17:51 VBG HCO3 21.7 mmol/L 11/17/18 17:51 VBG Total CO2 23.7 mmol/L (22-28) 11/17/18 17:51 VBG O2 Sat (Calc) 55.4 % (40-65) 11/17/18 17:51 VBG Base Excess -2.3 mmol/L (0.0-2.0) L 11/17/18 17:51 VBG Potassium 4.8 mmol/L (3.6-5.2) 11/17/18 17:51 Sodium 138.0 mmol/L (132-148) 11/17/18 17:51 Chloride 109.0 mmol/L (98-107) H 11/17/18 17:51 Glucose 139 mg/dL (65-105) H 11/17/18 17:51 Lactate 2.0 mmol/L (0.7-2.1) 11/17/18 17:51 FiO2 21.0 % 11/17/18 17:51 Crit Value Called To adam Gifford md 11/17/18 17:51 Crit Value Called By Ricardo ruvalcaba 11/17/18 17:51 Crit Value Read Back Y 11/17/18 17:51 Blood Gas Notified Time 1802 11/17/18 17:51 Sodium 132 mmol/l (132-148) 11/20/18 05:35 Potassium 4.0 MMOL/L (3.6-5.0) 11/20/18 05:35 Chloride 105 mmol/L (98-107) 11/20/18 05:35 Carbon Dioxide 19 mmol/L (22-30) L 11/20/18 05:35 Anion Gap 12 (10-20) 11/20/18 05:35 BUN 27 mg/dl (7-17) H 11/20/18 05:35 Creatinine 1.5 mg/dl (0.7-1.2) H 11/20/18 05:35 Est GFR ( Amer) 40 11/20/18 05:35 Est GFR (Non-Af Amer) 33 11/20/18 05:35 Random Glucose 93 mg/dL (65-105) 11/20/18 05:35 Lactic Acid 0.8 mmol/L (0.7-2.1) 11/18/18 04:35 Calcium 8.0 mg/dL (8.4-10.2) L 11/20/18 05:35 Phosphorus 4.1 mg/dl (2.5-4.5) 11/20/18 05:35 Magnesium 1.8 MG/DL (1.6-2.3) 11/20/18 05:35 Total Bilirubin 0.6 mg/dl (0.2-1.3) 11/20/18 05:35 AST 18 U/L (14-36) 11/20/18 05:35 ALT 27 U/L (9-52) 11/20/18 05:35 Alkaline Phosphatase 45 U/L (38-126) 11/20/18 05:35 Troponin I < 0.0120 ng/mL (0.00-0.120) 11/18/18 04:35 NT-Pro-B Natriuret Pep 5620 pg/ml (0-900) H 11/17/18 17:46 Total Protein 5.3 G/DL (6.3-8.2) L 11/20/18 05:35 Albumin 2.4 g/dL (3.5-5.0) L 11/20/18 05:35 Globulin 2.9 gm/dL (2.2-3.9) 11/20/18 05:35 Albumin/Globulin Ratio 0.8 (1.0-2.1) L 11/20/18 05:35 Free T4 1.58 ng/dL (0.78-2.19) 11/18/18 04:35 TSH 3rd Generation 4.63 mIU/ML (0.46-4.68) 11/20/18 05:35 Venous Blood Potassium 4.8 mmol/L (3.6-5.2) 11/17/18 17:51 Blood Type O POSITIVE 11/17/18 17:46 Antibody Screen Negative 11/17/18 17:46 Crossmatch See Detail 11/17/18 17:46 BBK History Checked Patient has bt 11/17/18 17:46 Discharge Exam - Head Exam Head Exam: NORMAL INSPECTION Discharge Plan - Discharge Medications Prescriptions: Clindamycin in NS [Clindamycin 300 mg/50 ml-Ns] 300 mg IV Q12 #14 piggyback Piperacill/Tazo 2.25gm in Dex [Zosyn 2.25 Gm IV Premix] 2.25 gm IV Q8 #15 bag - Follow Up Plan Condition: CRITICAL Disposition: TRANSF TO SNF Instructions: Gastrointestinal Bleeding (DC) Referrals: Jean-Paul Mckenna MD, PhD [Staff Provider] - Florencio Eric MD [Staff Provider] -
--- NOTE | 2018-11-24 11:08 | RAD ---
Date of service: 2018-11-18 00:01:18 HISTORY: COMPARISON: No prior. TECHNIQUE: 1 view obtained. FINDINGS: LUNGS: Central pulmonary vasculature is slightly congested with patchy opacity right lower lobe may represent atelectasis and/or infiltrate. Minimal left basilar atelectasis. PLEURA: No significant pleural effusion identified, no pneumothorax apparent. CARDIOVASCULAR: Aortic atherosclerotic calcification present. Cardiomegaly. No pulmonary vascular congestion. OSSEOUS STRUCTURES: No significant abnormalities. VISUALIZED UPPER ABDOMEN: Normal. OTHER FINDINGS: None. IMPRESSION: Central pulmonary vasculature is slightly congested with patchy opacity right lower lobe may represent atelectasis and/or infiltrate. Minimal left basilar atelectasis.
--- NOTE | 2018-11-24 13:31 | PQF ---
PROVIDER RESPONSE TEXT: CKD stage 3. REVIEWER QUERY TEXT: Kidney Disease, Chronic CKD Stage Chronic Kidney Disease (CKD) is documented in the Medical Record. Please specify the disease stage ( includes probable or suspected) Such as: -- Chronic kidney disease Stage 1 -- Chronic kidney disease Stage 2 -- Chronic kidney disease Stage 3 -- Chronic kidney disease Stage 4 -- Chronic kidney disease Stage 5 -- Chronic kidney disease Stage 5, requiring dialysis -- End Stage Renal Disease -- Other, please specify Creatinine: 1.9->1.7->1.6->1.5 Est GFR ( Amer): 30->34->37->40 Est GFR (Non Af Amer):25->28->31->33 H and P includes: --Acute kidney injury superimposed on CKD Status: Acute Priority: High (1) GI bleed Status: Acute Priority: High (2) Severe anemia Status: Acute Priority: High Comment: 2nd to GI bleeding After transfusion Hgb level in 7.5, f/u MRSA screen, Pt on Cipro, continue Sodium Chl, Metronidazole, Nitroglycerine 2% and rest of Tx. GI consult. Stages are defined by the [employer] as follows: CKD Stage I GFR >= 90 ml / min per 1.73 m2 and persistent albuminuria CKD Stage 2 GFR between 60 and 89 with persistent albuminuria CKD Stage 3 GFR between 30 and 59 CKD Stage 4 GFR between 15 and 29 CKD Stage 5 GFR between <15 or End Stage Renal Disease The patient's Clinical Indicators include: --- Query created by: Mary Vazquez on 11/20/2018 12:12 PM Electronically signed by: Florencio Eric MD 11/24/2018 1:28 PM
--- NOTE | 2018-11-24 13:36 | PQF ---
PROVIDER RESPONSE TEXT: Currently etiology of GI Bleed is unknown. Will workup further as outpatient with colonoscopy. REVIEWER QUERY TEXT: Clarification of Clinical Diagnostic Findings Please clarify the etiology of the GI Bleeding? if known after the work up is completed OR: unable to determine CT Abdomen: Impression: Fecal impaction/constipation without mechanical obstructing lesion.Markedly d istended urinary bladder.Lower lobe infiltrates and pleural effusions H and P: (1) GI bleed Status: Acute Priority: High (2) Severe anemia Status: Acute Priority: High Comment: 2nd to GI bleeding. (3) Acute kidney injury superimposed on CKD Status: Acute Priority: High (4) HTN (hypertension) Status: Chronic Priority: Medium --After transfusion Hgb level in 7.5, f/u MRSA screen, Pt on Cipro, continue Sodium Chl, Metronidazole, Nitroglycerine 2% and rest of Tx. GI consult. 11/21 GI:with constipation Laxatives distended bladder The patient's Clinical Indicators include: -- Query created by: Mary Vazquez on 11/21/2018 10:26 AM Electronically signed by: Florencio Eric MD 11/24/2018 1:33 PM
--- NOTE | 2018-11-25 00:09 | CON ---
DATE: 11/22/2018 REASON FOR CONSULTATION: Multiple cysts in right kidney. HISTORY OF THE PRESENT ILLNESS: The patient was admitted with abdominal pain and underwent CAT scan of the abdomen and pelvis. The CAT scan of the abdomen and pelvis showed multiple very large renal cysts. The patient has a history of multiple admissions to [facility] for other instances. She says she has been having right flank pain for several months, and it seems to be getting worse recently. REVIEW OF SYSTEMS: Respiratory, GI, musculoskeletal, vascular, neurological, and integument systems are negative. These present symptoms. PHYSICAL EXAMINATION: VITAL SIGNS: Within normal limits. CARDIOPULMONARY: Heart is normal sinus rhythm. There are no murmurs. LUNGS: Clear. ABDOMEN: Soft and nontender. There are no masses or organomegaly. GENITOURINARY: Vaginal examination was not done. EXTREMITIES: Normal. LABORATORY DATA: I reviewed the lab data and the x-rays. IMPRESSION: My impression is longstanding multiple right renal cysts. PLAN: I would suggest the following: Since she has already consulted Interventional Radiology for cyst puncture, I suggest that she let the Interventional Radiology to evaluate the patient for possible cyst puncture. We will discuss with you. Jean-Paul Mason MD
== END 2018-11-23 13:19 | DRG 377 ==
LOC: SUPCPDRO 17:07 → H.ER 17:07 → H.ERHOLD 18:25 → H.ICU/CCU 11-18 00:36 → H.TEL 11-18 17:20
PROVIDERS: ADMIT Internal Medicine Pulmonary Disease; ATTEND Internal Medicine Pulmonary Disease
PROC: 30233N1 Transfusion of Nonautologous Red Blood Cells into Peripheral Vein, Percutaneous Approach (ICD-10-PCS; 2018-11-17)
PROC: 02HV33Z Insertion of Infusion Device into Superior Vena Cava, Percutaneous Approach (ICD-10-PCS; principal; 2018-11-22)
PROC: B518ZZA Fluoroscopy of Superior Vena Cava, Guidance (ICD-10-PCS; 2018-11-22)
PROC: B548ZZA Ultrasonography of Superior Vena Cava, Guidance (ICD-10-PCS; 2018-11-22)
PROC: 3E04329 Introduction of Other Anti-infective into Central Vein, Percutaneous Approach (ICD-10-PCS; 2018-11-22)
DX: K92.2 Gastrointestinal hemorrhage, unspecified (principal); J18.9 Pneumonia, unspecified organism; D62 Acute posthemorrhagic anemia; N17.9 Acute kidney failure, unspecified; I12.9 Hypertensive chronic kidney disease with stage 1 through stage 4 chronic kidney disease, or unspecified chronic kidney disease; N18.3 Chronic kidney disease, stage 3 (moderate); E86.0 Dehydration; K59.00 Constipation, unspecified; N32.89 Other specified disorders of bladder; R33.8 Other retention of urine; E03.9 Hypothyroidism, unspecified; F03.90 Unspecified dementia, unspecified severity, without behavioral disturbance, psychotic disturbance, mood disturbance, and anxiety; J45.909 Unspecified asthma, uncomplicated; M19.90 Unspecified osteoarthritis, unspecified site